=== PATIENT | female | born 1955 | race Caucasian/White ===

== ENCOUNTER 2024-03-02 12:50 | Outpatient (OUT) | payer MEDICARE, SELFPAY | END 2024-03-02 12:51 | disposition home or self-care (01) | LOC: PST 12:51 | PROVIDERS: Family Provider Family Medicine; Visit Provider Surgery | DX: Z01.818 Encounter for other preprocedural examination (principal); Z12.11 Encounter for screening for malignant neoplasm of colon ==

== ENCOUNTER 2024-03-11 06:37 | Day surgery (SDC) | payer MEDICARE, OTHER, SELFPAY ==
--- NOTE | 2024-03-11 | OP_ITS ---
OPERATION DATE: 03/11/2024 PREOPERATIVE DIAGNOSIS: Colorectal screening. POSTOPERATIVE DIAGNOSIS: Two adjacent 3 mm sessile colon polyps in the ascending colon. PROCEDURE: Colonoscopy to cecum with cold snare polypectomy x2. SURGEON: Robin Yanez M.D. ANESTHESIA: Monitored anesthesia care. ESTIMATED BLOOD LOSS: Less than 2 mL. INDICATIONS AND CONSENT: Patient is a 68-year-old female presents for colorectal screening. Indications, risks, benefits, alternatives of proceeding with colonoscopy were explained extensively to the patient, including the risks of bleeding, colon perforation or anesthetic complications. All of her questions were answered. Informed consent was obtained. PROCEDURE: Patient brought to the operating room, placed in the left lateral decubitus position. Monitored anesthesia care was provided. Rectal exam was performed which revealed no masses or blood. The scope was inserted into the anal canal. Under direct visualization was advanced. With the aid of abdominal compression, it was advanced to the cecum where cecal markings were clearly identified. There was noted to be a good prep. Upon withdrawal of the scope, mucosal surfaces were carefully examined. Within the ascending colon, there were noted to be two 3 mm sessile polyps that were adjacent to each other, erythematous. These were removed with cold snare with good hemostasis. No other mass lesions or polyps were noted. No inflammatory changes or ulcerations. No significant diverticulosis. The scope was retroflexed in the anal canal. There was no significant hemorrhoidal disease. Scope was then withdrawn. Patient tolerated procedure well, was sent to recovery room in good condition. Follow up colonoscopy should be in five years, but will depend on the pathology report. CC: Al Sandoval M.D. MARISELA
--- OUTSIDE RECORDS SUMMARY | 2024-03-11 06:44 | XMS_ITS | CCD ---
Author Organization [facility] Care Team Providers Care Supervisor Sawmill Name Role Phone Pretty Culp Primary Care Provider SOUMYA PATTNE Referring Unavailabl e SUNI, PRETTY Primary Care Unavailable PRETTY CULP Primary Care Unavailable SOUMYA PATTEN Referring Unavailabl e SUNI, PRETTY Primary Care Unavailable SOUMYA PATTEN Attending SOUMYA Burgess Referring Unavailabl e SUNI, PRETTY MONACO Referring Unavaila ble GENERIC PROVIDER, NO ASSIGNED PCP Primary Care Unavailable Robin LOPEZ Attending Unavailable PRETTY CULP Primary Care Physician Allergies Allergy Classification Reported Allergen(s) Allergy Type Date of Onset Reaction(s) Facility (1 source) ALLERGIES NOT ON FILE; Translations: [ALLERGIES NOT ON FILE] Propensity to adverse reactions (disorder) [facility] Repository (1 source) No Known Medication Allergies; Translations: [No Known Medication Allergies] Propensity to adverse reactions (disorder) [facility] Repository Medications Current Medications Medication Drug Class(es) Dates Sig (Normalized) Sig (Original) calcium citrate 1500 mg / cholecalciferol 250 unt oral tablet (1 source) Vitamin D take 1 tablet by mouth twice daily at mealtime calcium citrate-vitamin D (CITRICAL + D) 315-250 MG-UNIT TABS per tablet Take 1 tablet by mouth 2 times daily (with meals) 0 Active 24 hr dilTIAZem hydrochloride 120 mg extended release oral capsule (6 sources) Calcium Channel Ismael Start: 10-04-2023 End: 10-04-2023 take 120 mg by mouth once daily Diltiazem Hcl Active 120 MG PO Daily 90 October 04, 2023 9:49am Start: 09-02-2017 take 1 tablet by ashley th once daily diltiazem (CARDIZEM) 120 MG tablet Take 120 mg by mouth daily 0 09/02/2017 Active Diltiazem Hydrochloride ER 120 mg/24 hours oral capsule, extended release (1 source) Start: 10-28-2019 take 1 capsule by mouth once daily Diltiazem Hydrochloride ER 120 mg/24 hours oral capsule, extended release 120 mg = 1 cap(s), Oral, Daily, Refills(s) 0 Start Date: 10/28/19 Status: Ordered estradiol 0.5 mg oral tablet (10 sources) Estrogen Start: 10-27-2018 take 1 tablet by mouth once daily estradiol (ESTRACE) 1 MG tablet TAKE 1 TABLET BY MOUTH EVERY DAY 90 tablet 1 10/27/2018 Active Start: 09-10-2018 take 1 tablet by ashley once daily estradiol (ESTRACE) 0.5 MG tablet Indications: Menopause Take 1 tablet by mouth daily 90 tablet 3 02/21/2021 Active Flonase 0.05 mg/inh nasal spray (1 source) Start: 10-28-2019 Flonase 0.05 mg/inh nasal spray 2 spray(s), Nasal, Daily, Refill(s) 0 Start Date: 10/28/19 Status: Ordered fluticasone propionate 0.05 mg/actuat metered dose nasal spray (4 sources) Corticosteroid fluticasone (FLONASE) 50 MCG/ACT nasal spray 1 spray by Nasal route as needed. 0 Active Fluticasone Prp-Sod.Chl,Bicarb (1 source) Start: 10-04-2023 Fluticasone Prp-Sod.Chl,Bicar b Active 2 EACH INTRANASAL daily October 04, 2023 12:00am Multiple Vitamins-Minerals (MULTIVITAL PO) (3 sources) Multiple Vitamins-Minerals (MULTIVITAL PO) Take by mouth 0 Active Multivitamin, Therapeutic w/ Minerals (1 source) Start: 10-29-2019 take 1 tablet by mouth once daily Multivitamin, Therapeutic w/ Minerals 1 tab(s), Oral, Daily, Refill(s) 0 Start Date: 10/29/19 Status: Ordered pravastatin sodium 40 mg oral tablet (6 sources) HMG-CoA Reductase Inhibitor Start: 10-28-2019 take 40 mg by mouth once daily Pravastatin Active 40 MG PO Daily October 04, 2023 12:00am Probiotic Product (PROBIOTIC DAILY PO) (4 sources) take 1 tablet by mouth once daily Probiotic Product (PROBIOTIC DAILY PO) Take 1 tablet by mouth daily 0 Active Problems Active Problems Problem Classification Problem Date Documented Date Episodic/Chronic Administrative/soci al admission (2 sources) Other specified counseling; Translations: [Other specified counseling] Onset: 3 Episodic Cardiac dysrhythmias (1 source) Supraventricular tachycardia 01-17-2024 Chronic Chronic kidney disease (2 sources) Chronic kidney disease; Translations: [Chronic kidney disease, unspecified] Onset: 3 11-08-2023 Chronic Disorders of lipid metabolism (7 sources) Mixed hypercholesterolemia and hypertriglyceridemia; Translations: [Mixed hyperlipidemia] Onset: 7 09-04-2017 Chronic Essential hypertension (1 source) Benign essential hypertension 10-28-2019 Chronic Nutritional deficiencies (2 sources) Vitamin D deficiency; Translations: [Vitamin D deficiency, unspecified] 11-08-2023 Chronic Other nutritional; endocrine; and metabolic disorders (1 source) Overweight 01-17-2024 Episodic Other nutritional; endocrine; and metabolic disorders (1 source) Overweight in adulthood with body mass index of 25 or more but less than 30 01-28-2024 Episodic Other screening for suspected conditions (not mental disorders or infectious disease) (9 sources) Patient encounter status; Translations: [Encounter for screening mammogram for malignant neoplasm of breast] Onset: 2 Resolved: 8 Episodic Other skin disorders (1 source) Epidermoid cyst of skin 10-29-2019 Episodic Other upper respiratory disease (4 sources) Allergic rhinitis due to pollen; Translations: [Allergic rhinitis due to pollen] Onset: 8 09-04-2017 Chronic Other upper respiratory disease (1 source) Seasonal allergic rhinitis 10-28-2019 Chronic Residual codes; unclassified (1 source) Asymptomatic menopausal state; Translations: [Asymptomatic menopausal state] Onset: 3 Episodic Unclassified (5 sources) Patient encounter status; Translations: [Visit for screening mammogram] Onset: 2 Resolved: 8 02-17-2018 Past or Other Problems Problem Classification Problem Date Documented Date Episodic/Chronic Heart valve disorders (5 sources) Heart murmur; Translations: [Cardiac murmur, unspecified] Onset: 04-17-2017 09-04-2017 Episodic Residual codes; unclassified (4 sources) Postmenopausal state; Translations: [Asymptomatic menopausal state] Onset: 04-17-2017 09-04-2017 Episodic Results Test Name Value Interpretation Reference Range Facility Ambulatory Visit Summaryon 1 Ambulatory Visit Summary Ambulatory Visit Summary NNAMDI SEPULVEDA :1955 Visit Date:01/28/2024 Ambulatory Visit Instructions Your Diagnosis Screening for malignant neoplasm of colon Your Care Team Attending Physician - JOHN TAPIA, Robin Sal Primary Care Physician - SUNI TAPIA, PRETTY This Is Your Medications List Contact prescribing physician if questions or concerns diltiazem (Diltiazem Hydrochloride ER 120 mg/24 hours oral capsule, extended release) fluticasone nasal (Flonase 0.05 mg/inh nasal spray) multivitamin with minerals (Multivitamin, Therapeutic w/ Minerals) pravastatin (pravastatin 40 mg Tab) Procedures Performed Colonoscopy (04/03/2012), NEETA BSO - Total abdominal hysterectomy and bilateral salpingo-oophorectomy (08/20/1993), Removal of pilonidal cyst. Discharge Vitals Heart Rate (Peripheral) 72 Respiratory Rate 16 Blood Pressure 138/72 Height 163.8 cm Height 64 in Weight 69.6 kg Weight 153.12 lb BMI 25.94 Medications What How Much When Instructions Unchanged diltiazem (Diltiazem Hydrochloride ER 120 mg/ 24 hours oral capsule, extended release) 1 Capsules By Mouth Every day Contact prescribing physician if questions or concerns Unchanged fluticasone nasal (Flonase 0.05 mg/ inh nasal spray) 2 Sprays Nasal Inhalation Every day Contact prescribing physician if questions or concerns Unchanged multivitamin with minerals (Multivitamin, Therapeutic w/ Minerals) 1 Tablets By Mouth Every day Contact prescribing physician if questions or concerns Unchanged pravastatin (pravastatin 40 mg Tab) 1 Tablets By Mouth Every day Contact prescribing physician if questions or concerns Allergies No Known Allergies No Known Medication Allergies Problems Ongoing - Any problem that you are currently receiving treatment for. Benign essential hypertension BMI 25.0-25.9,adult Chronic kidney disease stage 2 Chronic seasonal allergic rhinitis Dyslipidemia Epidermal cyst Heart murmur Mixed hypercholesterolemia and hypertriglyceridemia Overweight Screening for malignant neoplasm of colon SVT (supraventricular tachycardia) Vitamin D deficiency Patient Survey You may receive a survey via text or e-mail asking about your office visit. Please share your experience with us by completing your survey. We appreciate your feedback and thank you for choosing us for your care. Normal [facility] CT CARDIAC SCORING WO IV CON TRASTon 04-16-2023 CT CARDIAC SCORING WO IV CONTRAST Interpreted By: Jairo Rosario, ADDENDUM: NON-CARDIOVASCULAR FINDINGS INCLUDED LUNGS, AIRWAYS AND PLEURA Endotracheal / endobronchial lesion: Negative Nodule: Negative Airspace disease: Negative Pleural effusion: Negative Pneumothorax: Negative Other: No acute or contributory unanticipated findings INCLUDED NON-CARDIOVASCULAR JIM AND MEDIASTINUM Adenopathy: Negative Included esophagus: Unremarkable Other: No acute or contributory unanticipated findings INCLUDED BONES: No acute skeletal findings, noting less sensitivity and specificity without dedicated sagittal and coronal reformatted series. INCLUDED CHEST WALL No acute or contributory unanticipated findings INCLUDED UPPER ABDOMEN Two small simple hepatic cysts of doubtful clinical consequence ------- NON-CARDIOVASCULAR IMPRESSION NO ACUTE OR CONTRIBUTORY UNEXPECTED FINDINGS OF THE INCLUDED NON-CARDIOVASCULAR STRUCTURES NOTE THIS ADDENDUM IS SOLELY FOR INTERPRETATION OF ANATOMY OUTSIDE THE CARDIOVASCULAR SYSTEM. INTERPRETATION OF AND REPORTING OF THE CARDIOVASCULAR STRUCTURES ARE THE SOLE RESPONSIBILITY OF THE BACKWINDER SUBMITTING THE ORIGINAL REPORT (NOT THIS ADDENDUM) Signed by: Jairo Rosario 04/16/2023 3:00 PM -------- ORIGINAL REPORT -------- Dictation workstation: [id number] Interpreted By: Robin Connolly, STUDY: CT CARDIAC SCORING WO IV CONTRAST; 04/16/2023 12:45 pm INDICATION: Signs/Symptoms:.. COMPARISON: None. ACCESSION NUMBER(S): [id number] ORDERING CLINICIAN: PRETTY CULP TECHNIQUE: Using prospective ECG gating, CT scan of the coronary arteries was performed without intravenous contrast. Coronary calcium scoring was performed according to the method of Agatston. CT Dose-Length Product (DLP): 70 mGy*cm CT Dose Reduction Employed: Yes, prospective gating, iterative reconstruction. FINDINGS: The score and distribution of calcium in the coronary arteries is as follows: LM 0 LAD 0 LCx 0 RCA 0 Total 0 The visualized mid/lower ascending thoracic aorta measures 3.0 cm in diameter. The heart is normal in size. No pericardial effusion is present. IMPRESSION: 1. Coronary artery calcium score of 0*. *Coronary artery calcium scoring may be helpful in predicting the risk for future coronary heart disease events. According to the [employer] Clinical Expert Consensus Task Force, such testing provides important prognostic information in patients with more than one coronary heart disease risk factor. The coronary artery calcium score correlates with the annual risk of a non-fatal myocardial infarction or coronary heart disease . Coronary artery score Annual Risk 0-99 0.4% 100-399 1.3% >400 2.4% These three breakpoints correspond to lower, intermediate and high risk states for future coronary events. Such information should be used, along with appropriate clinical judgment, to make decisions regarding the intensity of risk factor management strategies to treat blood lipids and to modify other non-lipid coronary risk factors. Reference: Nick P et al. Circulation. 2007; 115:402-426 Reading Building Certifier: Dr. Robin Connolly, Date: 04/16/2023 1:51 pm Signed by: Robin Connolly 04/16/2023 1:51 PM Dictation workstation: [id number] [facility] DEXA BONE DENSITY AXIAL SKEL ETONon 03-29-2023 DEXA BONE DENSITY AXIAL SKELETON EXAMINATION: BONE DENSITOMETRY 03/27/2023 1:38 pm TECHNIQUE: A bone density dual x-ray absorptiometry (DXA) scan was performed of the lumbar spine and left hip on a Eyenalyze system. COMPARISON: 08/27/2016 HISTORY: ORDERING SYSTEM PROVIDED HISTORY: Menopause TECHNOLOGIST PROVIDED HISTORY: Gender: F Age: 67 y/o FINDINGS: LUMBAR SPINE: L1-L4 BMD: 1.184 g/cm2 T-score: 0.0 Z-score: 1.6 There has been no statistically significant change in the bone mineral density of the lumbar spine since the prior exam date listed above. LEFT TOTAL HIP: BMD: 0.975 g/cm2 T-score: -0.3 Z-score: 1.0 LEFT FEMORAL NECK: BMD: 0.928 g/cm2 T-score: -0.8 Z-score: 0.7 There has been no statistically significant change in the bone mineral density of the total hip since the prior exam date listed above. FRAX: Not Indicated. IMPRESSION: Normal bone mineral density by WHO criteria. RECOMMENDATIONS: 1. All patients should optimize their calcium and vitamin D intake. 2. Consider FDA-approved medical therapies in postmenopausal women and men aged 50 years and older, based on the following: - A hip or vertebral (clinical or morphometric) fracture - T-score less than or equal to -2.5 at the femoral neck or spine after appropriate evaluation to exclude secondary causes - Low bone density (T-score between -1.0 and -2.5 at the femoral neck or spine) and a 10-year probability of a hip fracture greater than or equal to 3% or a 10-year probability of a major osteoporosis-related fracture greater than or equal to 20% based on FRAX calculation. - Clinician judgment and/or patient preferences may indicate treatment for people with 10-year fracture probabilities above or below these levels - Further guidance on treatment can be found at the National Osteoporosis Foundation's website bonesource.org. 3. Patients with diagnosis of osteoporosis or at high risk for fracture should have regular bone mineral density tests. For patients eligible for Medicare, routine testing is allowed once every 2 years. The testing frequency can be increased to one year for patients who have rapidly progressing disease, those who are receiving or discontinuing medical therapy to restore bone mass or have additional risk factors. Template code: [id number] Interpreted by: Paola Saenz MD Signed by: Paola Saenz MD 03/29/23 Final result Normal [facility] JEREMIAH DIGITAL SCREEN TONI Pang 03-26-2023 [facility] JEREMIAH DIGITAL SCREEN BILATERAL EXAMINATION: SCREENING DIGITAL BILATERAL MAMMOGRAM WITH TOMOSYNTHESIS, 03/26/2023 TECHNIQUE: Screening mammography was performed with tomosynthesis including MLO and CC views of the bilateral breasts. Computer aided detection was used for the interpretation of this exam. COMPARISON: 08 December 2021; 08 December 2020; 08 December 2019 HISTORY: Screening. Negative family history of breast cancer. Positive history of hormonal replacement therapy. No prior breast interventions. FINDINGS: Breasts are composed of heterogeneously dense parenchyma. No skin thickening, nipple contour changes, suspicious calcifications, suspicious masses, areas of architectural distortion or significant interval changes are noted. IMPRESSION: No evidence of malignancy. Advise annual screening mammography. BREAST DENSITY SUMMARY C: The breasts are heterogeneously dense which may obscure small masses. BI-RADS 1 BIRADS: BIRADS - CATEGORY 1 Negative, no evidence of malignancy. Normal interval follow-up is recommended in 12 months. OVERALL ASSESSMENT - NEGATIVE A letter of notification will be sent to the patient regarding the results. The [employer] recommends annual mammograms for women 40 years and older. Interpreted by: Kelly Tapia MD Signed by: Kelly Tapia MD 03/26/23 CC Recipients: Pretty Culp MD - Fax Final result Normal [facility] Cytology Reporton 03-21-2023 Cytology report Cyto stain.thin prep Doc (Cvx/Vag) (NOTE) Path Number: [id number] DIAGNOSIS Imaged ThinPrep Pap - Vaginal (1 monolayer slide): Specimen Adequacy: Satisfactory for evaluation. Descriptive Diagnosis: Negative for intraepithelial lesion or malignancy. Cytotech Screener: EY Electronically Signed Out Haile Burgos CT(ASCP) ey/03/27/2023 Source of Specimen: A: Imaged ThinPrep Pap - Vaginal (1 monolayer slide) Clinical History Estrogen Hysterectomy Z12.72 Vaginal pap post hysterectomy, non malignant condition Processing Lab: [address] [id number] Interpretation performed at [address] [id number] This Pap Test has been evaluated with the assistance of the [employer] Pap Test Imaging System. The Pap smear is a screening test primarily for squamous epithelial lesions, which is subject to both false negative and false positive results. Your patient should be reminded to consult you immediately if she experiences any suspicious signs or symptoms, regardless of her Pap smear result. GYNECOLOGIC CYTOLOGY REPORT Patient Name: NNAMDI SEPULVEDA [facility] Rec: [id number] [facility] ANATOMIC PATHOLOGY [address] [place] [address]. [place] [id number] Normal [facility] GARETH JEREMIAH DIGITAL SCREEN SELF REFERRAL W OR WO CAD BILATERALon 12-09-2021 No evidence of malignancy. Advise annual screening mammography. BREAST DENSITY SUMMARY C: The breasts are heterogeneously dense which may obscure small masses. BI-RADS 1 BIRADS: BIRADS - CATEGORY 1 Negative, no evidence of malignancy. Normal interval follow-up is recommended in 12 months. OVERALL ASSESSMENT - NEGATIVE A letter of notification will be sent to the patient regarding the results. The [employer] recommends annual mammograms for women 40 years and older. [facility]: SCREENING DIGITAL BILATERAL MAMMOGRAM WITH TOMOSYNTHESIS, 12/08/2021 TECHNIQUE: Screening mammography of the bilateral breasts was performed with tomosynthesis. 2D standard and 3D tomosynthesis combination imaging performed through both breasts in the MLO and CC projection. Computer aided detection was utilized in the interpretation of this exam. COMPARISON: 08 December 2020; 08 December 2019 HISTORY: Screening. Negative family history of breast cancer. Negative history of hormonal replacement therapy. No prior breast interventions. FINDINGS: Breast parenchyma is heterogeneously dense which can obscure small masses. No skin thickening, nipple contour changes, malignant type microcalcifications, areas of architectural distortion, or significant interval changes are noted. Kelly Fallon MD - 12/09/2021 EXAMINATION: SCREENING DIGITAL BILATERAL MAMMOGRAM WITH TOMOSYNTHESIS, 12/08/2021 TECHNIQUE: Screening mammography of the bilateral breasts was performed with tomosynthesis. 2D standard and 3D tomosynthesis combination imaging performed through both breasts in the MLO and CC projection. Computer aided detection was utilized in the interpretation of this exam. COMPARISON: 08 December 2020; 08 December 2019 HISTORY: Screening. Negative family history of breast cancer. Negative history of hormonal replacement therapy. No prior breast interventions. FINDINGS: Breast parenchyma is heterogeneously dense which can obscure small masses. No skin thickening, nipple contour changes, malignant type microcalcifications, areas of architectural distortion, or significant interval changes are noted. IMPRESSION: No evidence of malignancy. Advise annual screening mammography. BREAST DENSITY SUMMARY C: The breasts are heterogeneously dense which may obscure small masses. BI-RADS 1 BIRADS: BIRADS - CATEGORY 1 Negative, no evidence of malignancy. Normal interval follow-up is recommended in 12 months. OVERALL ASSESSMENT - NEGATIVE A letter of notification will be sent to the patient regarding the results. The [employer] recommends annual mammograms for women 40 years and older. [employer] Phone: [employer] JEREMIAH DIGITAL SCREEN SELF REFERRAL W OR WO CAD BILATERALOrdered By: Kelly Tapia on 12-09-2021 [employer] Phone: [employer] other [employer] bake JEREMIAH DIGITAL SCREEN SELF REFERRAL W OR WO CAD BILATERALon 12-08-2021 Radiology Study observation (narrative) [employer] Phone: [employer] other things you bake JEREMIAH DIGITAL SCREEN SELF REFERRAL W OR WO CAD BILATERALOrdered By: Pretty Culp on 12-08-2020 No mammographic evidence of malignancy. BI-RADS 1 BIRADS: BIRADS - CATEGORY 1 Negative, no evidence of malignancy. Normal interval follow-up is recommended in 12 months. OVERALL ASSESSMENT - NEGATIVE A letter of notification will be sent to the patient regarding the results. The [employer] recommends annual mammograms for women 40 years and older. [employer] Phone: EXAMINATION: SCREENI NG DIGITAL BILATERAL MAMMOGRAM WITH TOMOSYNTHESIS, 12/08/2020 TECHNIQUE: Screening mammography of the bilateral breasts was performed with tomosynthesis. 2D standard and 3D tomosynthesis combination imaging performed through both breasts in the MLO and CC projection. Computer aided detection was utilized in the interpretation of this exam. COMPARISON: 12/08/2019, 09/23/2018 HISTORY: Screening. FINDINGS: The breast tissue is heterogeneously dense. There is no suspicious mass, suspicious microcalcification, or area of architectural distortion. [employer] Phone: [employer] Phone: [employer] DIGITAL SCREEN BILGil TERALon 12-09-2019 No evidence of malignancy. Advise annual screening mammography. BREAST DENSITY SUMMARY C: The breasts are heterogeneously dense which may obscure small masses. BI-RADS 1 BIRADS: BIRADS - CATEGORY 1 Negative, no evidence of malignancy in either breast. OVERALL ASSESSMENT - NEGATIVE A letter of notification will be sent to the patient regarding the results. RECOMMENDATION: Routine bilateral annual screening mammography is recommended. Follow-up screening mammogram in 1 year is advised. [employer] [place], [place] EXAMINATION: SCREENI NG DIGITAL BILATERAL MAMMOGRAM WITH TOMOSYNTHESIS, 12/08/2019 TECHNIQUE: Screening mammography was performed with tomosynthesis including MLO and CC views of the bilateral breasts. Computer aided detection was used for the interpretation of this exam. COMPARISON: 23 September 2018; 27 Aug 2016 HISTORY: Screening. Negative family history of breast cancer. Negative history of hormonal replacement therapy. No prior breast interventions. FINDINGS: The breasts are heterogeneously dense which can obscure small masses. No skin thickening, nipple contour changes, malignant type microcalcifications, or areas of architectural distortion are noted. There is little change from prior exam. [facility] [place], [facility] Incoming Radiant Results From [email or web address] - 12/09/2019 10:08 AM EDT EXAMINATION: SCREENING DIGITAL BILATERAL MAMMOGRAM WITH TOMOSYNTHESIS, 12/08/2019 TECHNIQUE: Screening mammography was performed with tomosynthesis including MLO and CC views of the bilateral breasts. Computer aided detection was used for the interpretation of this exam. COMPARISON: 23 September 2018; 27 Aug 2016 HISTORY: Screening. Negative family history of breast cancer. Negative history of hormonal replacement therapy. No prior breast interventions. FINDINGS: The breasts are heterogeneously dense which can obscure small masses. No skin thickening, nipple contour changes, malignant type microcalcifications, or areas of architectural distortion are noted. There is little change from prior exam. IMPRESSION: No evidence of malignancy. Advise annual screening mammography. BREAST DENSITY SUMMARY C: The breasts are heterogeneously dense which may obscure small masses. BI-RADS 1 BIRADS: BIRADS - CATEGORY 1 Negative, no evidence of malignancy in either breast. OVERALL ASSESSMENT - NEGATIVE A letter of notification will be sent to the patient regarding the results. RECOMMENDATION: Routine bilateral annual screening mammography is recommended. Follow-up screening mammogram in 1 year is advised. [facility] [place] Vital Signs Date Time Vital Sign Value Performing Clinician Dedrick pardo 01-28-2024 13:18-0400 Blood Pressure Location [employer] [facility] 01-28-2024 13:18-0400 Diastolic blood pressure 72 mm[Hg] Robin LikeabilityL [facility] 01-28-2024 13:18-0400 Heart rate 72 /min [email or web address] [facility] [facility] 01-28-2024 13:18-0400 Respiratory rate 16 /min Robin LikeabilityL [facility] 01-28-2024 13:18-0400 Systolic blood pressure 138 mm[Hg] [email or web address] [facility] 11-18-2023 10:04-0400 Body height 163.83 cm [facility] 11-18-2023 10:04-0400 Body mass index (BMI) [Ratio] 25.2 kg/m2 [facility] 11-18-2023 10:04-0400 Body weight 67.58 kg [facility] 11-18-2023 10:04-0400 Diastolic blood pressure 66 mm[Hg] [facility] 11-18-2023 10:04-0400 Heart rate 75 /min [facility] 11-18-2023 10:04-0400 Systolic blood pressure 122 mm[Hg] [facility] Encounters Encounter Date Encounter Type Care Provider Facility Start: 01-28-2024 End: 01-28-2024 ambulatory Robin LOPEZ Facility:[facility] Start: 01-28-2024 End: 01-28-2024 Patient encounter procedure Robin LOPEZ [facility] Start: 11-18-2023 End: 11-18-2023 ambulatory [facility] Work Phone: Start: 11-18-2023 End: 11-18-2023 Patient encounter procedure [facility] Physician [facility] Work Phone: Start: 11-08-2023 Patient encounter status [facility] Start: 04-16-2023 End: 04-17-2023 ambulatory PRETTY MONACO [facility] Start: 03-27-2023 End: 03-30-2023 ambulatory PRETTY CULP [facility] Start: 03-26-2023 End: 03-29-2023 [facility] Start: 03-21-2023 End: 03-22-2023 ambulatory SOUMYA PATTEN [facility] Start: 12-08-2021 End: 12-10-2021 Subsequent hospital visit by physician [facility] Mammography Room At [facility] Mammography Comment on above: Breast cancer screen ing by mammogram Start: 12-08-2020 End: 12-10-2020 Subsequent hospital visit by physician [facility] Mammography Room At [facility] Mammography Comment on above: Breast cancer screen ing by mammogram Start: 01-20-2020 End: 01-20-2020 Subsequent hospital visit by physician Pretty Culp [facility] Comment on above: Screening for vagina l cancer Start: 12-08-2019 End: 12-10-2019 Subsequent hospital visit by physician [facility] Mammography Room At [facility] Mammography Comment on above: Visit for screening mammogram Procedures Date Procedure Procedure Detail Performing Clinician Start: 04-16-2023 CT CARDIAC SCORING W O IV CONTRAST PRETTY CULP Start: 12-08-2021 Screening mammograph y bi 2-view breast inc cad Pretty Culp MD Work Phone: Start: 12-08-2020 Screening mammograph y bi 2-view breast inc cad Pretty Culp MD Work Phone: Start: 12-08-2019 Screening mammograph y bi 2-view breast inc cad Soumya Patten Work Phone: Start: 04-03-2012 Colonoscopy Robin CANCINO Comment on above: normal Start: 08-20-1993 Total abdominal hysterectomy with bilateral salpingo-oophorectomy Robin LOPEZ Removal of pilonidal cyst Maria Victoria td LOPEZ Comment on above: 1984 Plan of Treatment Date Care Activity Detail Author Start: 12-09-2023 Screening for malign ant neoplasm of breast Breast cancer screen [facility] [employer] Start: 11-18-2023 Patient referral [facility] Work Phone: Start: 01-19-2023 Screening for malign ant neoplasm of cervix Cervical cancer screen [employer] Work Phone: Start: 12-08-2022 Screening for malign ant neoplasm of breast Breast cancer screen [employer] Work Phone: Start: 02-21-2022 End: 02-21-2022 Patient encounter procedure 02/21/2022 Office Visit Obstetrics and Gynecology Soumya Patten, SYSTEMS SECURITY ANALYST - CNRas [address] [place] [address] [facility] Start: 02-17-2022 Depression Screen Depression Screen [facility] Start: 12-21-2021 Influenza vaccination Flu vaccine (# 1) [facility] Start: 12-07-2021 Screening for malign ant neoplasm of breast Breast cancer screen [place], [place] Start: 09-10-2021 Screening for malign ant neoplasm of cervix Cervical cancer screen [place], [place] Start: 02-09-2021 End: 02-09-2021 Patient encounter procedure 02/09/2021 Office Visit Obstetrics and Gynecology Soumya Patten, SYSTEMS SECURITY ANALYST - CNM [address] [place], [place] [id number] [facility] Start: 12-21-2020 Influenza vaccination Flu vaccine (# 1) [facility] Work Phone: Start: 09-28-2020 Lipid panel [facility] Start: 02-26-2020 Shingles Vaccine (2 of 2) Shingles Vaccine (2 of 2) [facility] Work Phone: Start: 01-20-2020 End: 01-20-2020 Office Visit 01/20/2020 Office Visit Obstetrics and Gynecology Soumya Patten, SYSTEMS SECURITY ANALYST - CNM [address] [facility] [address] [place] [address] [facility]OLOG[facility] Start: 12-22-2019 Influenza vaccination Flu vaccine (# 1) [place], [place] Start: 2007 Screening for malign ant neoplasm of colon Colon cancer screen colonoscopy [place], [place] Start: 2007 Shingles Vaccine (1 of 2) Shingles Vaccine (1 of 2) [place] Start: 2002 Screening for malign ant neoplasm of colon [facility] Start: 1976 DTaP/Tdap/Td vaccine (1 - Tdap) DTaP/Tdap/Td vaccine (1 - Tdap) [facility] Start: 1975 Hepatitis C screening Hepatitis C sc reen [facility] Start: 1972 HIV screening HIV screen [facility] Start: 1969 COVID-19 Vaccine (1) COVID-19 Vaccin e (1) [facility] Work Phone: Start: 1967 Lipid panel Lipid screen [place], [place] Start: 1957 COVID-19 Vaccine (#1) COVID-19 Vacci ne (#1) [facility] Start: 1957 Hepatitis C screening Hepatitis C il rufina [place], [place] End: 01-20-2020 Cytopathology procedure, preparation of smear, genital source [facility] Routine Screening for vaginal cancer 1 Occurrences starting 01/20/2020 until 01/20/2020 [place], [place] Comment on above: 1 Occurrences starti ng 01/20/2020 until 01/20/2020 Patient referral [facility] Work Phone: Immunizations Immunization Date Immunization Notes Care Provider [facility] 04-12-2023 influenza virus vaccine, unspecified formulation Robin LOPEZ [facility] 03-09-2022 COVID-19 mRNA-1273 (Moderna) [facility] 03-09-2022 influenza virus vaccine, unspecified formulation [facility] 03-09-2022 SARS-CoV-2 (COVID-19 ) [id number] Robin LOPEZ [facility] 08-18-2021 COVID-19 mRNA-1273 (Moderna) [facility] 03-15-2021 SARS-CoV-2 (COVID-19 ) mRNA-1273 vaccine Robin LOPEZ [facility] 03-03-2021 influenza virus vaccine, unspecified formulation [facility] 08-17-2020 SARS-CoV-2 (COVID-19 ) mRNA-1273 vaccine Robin LOPEZ [facility] 07-20-2020 SARS-CoV-2 (COVID-19 ) mRNA-1273 vaccine Robin LOPEZ [facility] 03-26-2020 zoster vaccine, [facility] 01-01-2020 influenza virus vaccine, unspecified formulation [facility] 01-01-2020 zoster vaccine, [facility] Payers Date Payer Category Payer Medicare [id number] 2020 Unknown ADOLFO [facility]ON[facility] [id number] 2020-[facility] [phone] [address] [id number] 2014 Unknown [id number] 1957 Unknown [id number] 1957 Unknown [id number] 1957 Unknown [id number] 1957 Unknown [id number] 1957 Unknown [id number] Unknown O [id number] Unknown [facility] [id number] Social History Date Type Detail Facility Start: 10-07-2018 End: 01-28-2024 Tobacco [facility] status [facility] Start: 09-04-2017 End: 10-07-2018 Tobacco use and exposure [facility] Start: 10-07-2018 End: 12-08-2020 Alcohol intake Current drinker of alcohol (finding) Meron [facility] [employer] Start: 09-04-2017 Alcohol Comment rarely [place]on [place] Start: 1955 Sex Assigned At Not on file [place], [place] Exposure to SARS-CoV -2 (event) Not sure [facility] [employer] Start: 02-17-2021 Alcohol intake Ex-drinker (finding) SARTHAK MELTON [place] [employer] Work Phone: Start: 1955 Sex Assigned At Female F [facility] Tobacco smoking status Never [facility] Sex Assigned At Female [facility] Functional Status Date Assessment Result Facility 01-28-2024 Functional Status N/A [facility] Clinical Note 01-28-2024 Note Date & Type Note Facility 01-28-2024 Note [facility] Surgery Offi ce/Clinic Note Chief Complaint consultation for colonoscopy HPI Staff 68 year old female presents on consultation from Dr. Culp for screening colonoscopy. Denies abdominal or rectal pain. No rectal bleeding or change in bowel habits. Denies nausea or vomiting. No unexplained weight loss. Last colonoscopy completed 03/2012- normal. No known family history of colon cancer. History of Present Illness 68 yo female with h/o htn, hypercholesterolemia, CKD, SVT, referred for colorectal screening; denies change in bms or blood in stools; no abd complaints; last colonoscopy 2011 wnl; abd operations significant for NEETA with bso; no asa or NSAID use; no tobacco use; no fmhx of GI malignancy or IBD. Review of Systems PHQ Score Initial Depression Screen Score: 0 SCORE ROS - Provider Constitutional: no fever, no sweats, no weight loss. Eyes: no glasses, no blurred vision, no visual loss. ENMT: no dentures, no hoarseness, no swallowing difficulties, no hearing loss, no ear infection(s), no nose bleeds. Cardiovascular: normal blood pressure, no chest pain, regular heartbeat, no heart murmur. Respiratory: no shortness of breath, no cough, no asthma, no wheezing. Gastrointestinal: no nausea, no vomiting, no diarrhea, no constipation, no blood in stool, no change in bowel habits, no abdominal pain, no hepatitis. Genitourinary: no kidney stones, no urine infection, no dysuria. Musculoskeletal: no pain, no weakness. Skin: no changing moles, no rash, no skin lumps. Neurologic: no seizures, no epilepsy, no headache. Psychiatric: no emotional or psychiatric problem. Heme/Lymph: no bleeding problems, no anemia, no blood clots, no transfusions. Allergy/Immunologic: no swollen lymph nodes/glands, no IV drug abuse. Other: Additional ROS info: Except as noted in the above Review of Systems and in the History of Present Illness, all other systems have been reviewed and are negative or noncontributory. Physical Exam Vitals & Measurements HR: 72(Peripheral) RR: 16 BP: 138/72 HT: 64 in HT: 163.8 cm WT: 69.6 kg WT: 153.12 lb BMI: 25.94 HEENT: normal conjunctiva, sclera clear, no scleral icterus, EOM intact, PERRLA, oral mucosa moist without lesions. Neck: trachea midline, no mass, symmetric, no thyromegaly or nodules, no adenopathy Respiratory: lungs CTA, respirations non labored. Cardiovascular: regular rate and rhythm, no murmur, no pedal edema or varicosities. Gastrointestinal: soft, non distended, no tenderness, no masses, no palpable hernias, diastasis recti no, no hepatosplenomegaly; normal bs Lymphatic: no cervical adenopathy, no supraclavicular adenopathy normal gait, digits and nails without infection, nodes, cyanosis, clubbing. Skin: no rashes, no lesions, no ulcers, no subcutaneous nodules, induration. Psychiatric/Neuro: oriented to time, place, person, judgement normal, affect appropriate for age, insight intact, no focal deficits. Tests: labs reviewed, x-rays reviewed, review of old records completed , _ surgical options, risks, and possible complications with patient. Assessment/Plan 1. Screening for malignant neoplasm of colon (Z12.11: Encounter for screening for malignant neoplasm of colon) plan colonoscopy under anesthesia, informed consent obtained. Follow-up No qualifying data available Problem List/Past Medical History Ongoing Benign essential hypertension BMI 25.0-25.9,adult Chronic kidney disease stage 2 Chronic seasonal allergic rhinitis Dyslipidemia Epidermal cyst Heart murmur Mixed hypercholesterolemia and hypertriglyceridemia Overweight Screening for malignant neoplasm of colon SVT (supraventricular tachycardia) Vitamin D deficiency Historical No qualifying data Procedure/Surgical History Colonoscopy (04/03/2012), NEETA BSO - Total abdominal hysterectomy and bilateral salpingo-oophorectomy (08/20/1993), Removal of pilonidal cyst. Medications Diltiazem Hydrochloride ER 120 mg/24 hours oral capsule, extended release, 120 mg= 1 cap(s), Oral, Daily Flonase 0.05 mg/inh nasal spray, 2 spray(s), Nasal, Daily Multivitamin, Therapeutic w/ Minerals, 1 tab(s), Oral, Daily pravastatin 40 mg Tab, 40 mg= 1 tab(s), Oral, Daily Allergies No Known Allergies No Known Medication Allergies Social History Alcohol - Denies Alcohol Use, 10/29/2019 Substance Abuse - Denies Substance Abuse, 10/29/2019 Tobacco Never (less than 100 in lifetime) Tobacco Use:. Never Smokeless Tobacco Use:., 01/28/2024 Family History Heart failure: Mother. Hypertension: Brother. Immunizations Vaccine Date Status influenza virus vaccine, inactivated 04/12/2023 Recorded SARS-CoV-2 (COVID-19) [id number] 03/09/2022 Recorded SARS-CoV-2 (COVID-19) mRNA-1273 vaccine 08/18/2021 Recorded SARS-CoV-2 (COVID-19) mRNA-1273 vaccine 03/15/2021 Recorded SARS-CoV-2 (COVID-19) mRNA-1273 vaccine 08/17/2020 Recorded SARS-CoV-2 (COVID-19) mRNA-1273 vaccine 07/20/2020 Recorded [facility] Comment on above: Result Comment: Elec tronically Signed By: JOHN TAPIA, Robin Christian\Date and Time Signed: 01/28/24 13:40 EDT Evaluation + Plan note Note Date & Type Note Facility Evaluation + Plan note No data available for this section [facility] Evaluation note Note Date & Type Note Facility Evaluation note Diagnosis Breast cancer screening by mammogram documented in this encounter [employer] Phone: Evaluation note Note Date & Type Note Facility Evaluation note Diagnosis Breast cancer screening by mammogram documented in this encounter SARTHAK MELTON [employer] Work Phone: Evaluation note Note Date & Type Note Facility Evaluation note Diagnosis Onset Date Encounter for screening colonoscopy acute [facility] Work Phone: Hospital Discharge instructions Note Date & Type Note Facility Hospital Discharge instructions Ambulatory OrdersReferral to General Surgery Time Frame: 11/18/23, Location: None [facility] Work Phone: Hospital Discharge instructions Note Date & Type Note Facility Hospital Discharge instructions No data available for this section [facility] [employer] Progress note Note Date & Type Note Facility Progress note No data available for this section [facility] Diagnosis Visit for screening mammogram Other screening mammogram Diagnosis Screening for vaginal cancer Special screening for malignant neoplasms, vagina Advance Directives Documents on File Type Date Recorded Patient Scholarship Counselor Expl anation ACP-Advance Directive ACP-Power of Emergency Vehicle Driver Documents on File Type Date Recorded Patient Scholarship Counselor Expl anation ACP-Advance Directive ACP-Power of Emergency Vehicle Driver Advance Directive Response Recorded Date/ Time Advance Directives No November 17 9:55am Reason for Referral Status Reason Specialty Diagnoses / Procedures Referre d By Contact Referred To Contact Closed Radiology Diagnoses Breast cancer screening by mammogram Procedures GARETH JEREMIAH DIGITAL SCREEN SELF REFERRAL W OR WO CAD BILATERAL Pretty Culp MD [address] [place] [address] Specialty Diagnoses / Procedures Referred By Contac t Referred To Contact Radiology Diagnoses Breast cancer screening by mammogram Procedures GARETH JEREMIAH DIGITAL SCREEN SELF REFERRAL W OR WO CAD BILATERAL Pretty Culp MD [address] [place] [address] Referral ID Status Reason Start Date Expiration Date Visits Re quested Visits Authorized [id number] Closed 12/08/2021 12/08/2022 1 1 Summary Purpose Family History Relationship Condition Age at Onset Recorded Date/T vance brother Hypertension Unknown father History of malignant neoplasm of prostate Unknown Malignant neoplasm Unknown Unknown Heart disease Unknown family member Heart disease Unknown mother Cardiomegaly Unknown Chief Complaint and Reason for Visit Chief Complaint wellness Reason for Visit Encounter for screen ing colonoscopy Additional Source Comments Reason for Visit (unrecogniz ed section and content) Status Reason Specialty Diagnoses / Procedures Referre d By Contact Referred To Contact Closed Radiology Diagnoses Visit for screening mammogram Procedures GARETH JEREMIAH DIGITAL SCREEN BILATERAL GARETH DIGITAL SCREEN W OR WO CAD BILATERAL Soumya Patten, SYSTEMS SECURITY ANALYST - CNM [address] [facility] [address] [place] [address] [facility] [address] [place] [address] Status Reason Specialty Diagnoses / Procedures Referre d By Contact Referred To Contact Closed Radiology Diagnoses Breast cancer screening by mammogram Procedures GARETH JEREMIAH DIGITAL SCREEN SELF REFERRAL W OR WO CAD BILATERAL Pretty Cupl MD [address] [place] [phone] Specialty Diagnoses / Procedures Referred By Contac t Referred To Contact Radiology Diagnoses Breast cancer screening by mammogram Procedures GARETH JEREMIAH DIGITAL SCREEN SELF REFERRAL W OR WO CAD BILATERAL Pretty Culp MD [address] [place] [phone] Referral ID Status Reason Start Date Expiration Date Visits Re quested Visits Authorized [id number] Closed 12/08/2021 12/08/2022 1 1 Care Teams (unrecognized sec tion and content) Personnel Name: PRETTY CULP MD Address: Address: [address] [place] [address] Supervisor Sawmill Relationship Specialty Start Date End Date Pretty Culp MD PCP - General Family Medicine 08/21/18 Team Status: Active Member Role Status Dates Pretty Culp MD Primary Care Provider Active Team Status: Inactive Member Role Status Dates Pretty Culp MD Primary Care Provide r, Attending Provider Active Start: November 18, 2023 End: November 18, 2023 INFORMATION SOURCE (unrecogn ized section and content) DATE CREATED AUTHOR 03/31/2023 Meron banda DATE CREATED AUTHOR AUTHOR'S ORGANIZ ATION 04/21/2023 [facility] DATE CREATED AUTHOR AUTHOR'S ORGANIZ ATION 01/30/2024 [facility] Goals (unrecognized section and content) Goals may be documented in a n alternate section No data available for this section FOR RECORDS PERTAINING TO PATIENTS WHO ARE OR HAVE BEEN ENROLLED IN A CHEMICAL DEPENDENCY/SUBSTANCEABUSE PROGRAM, SOME INFORMATION MAY BE OMITTED. This clinical summary was aggregated from multiple sources. Caution should be exercised in using it in the provision of clinical care. This summary normalizes information from multiple sources, and as a consequence, information in this document may materially change the coding, format and clinical context of patient data. In addition, data may be omitted in some cases. CLINICAL DECISIONS SHOULD BE BASED ON THE PRIMARY CLINICAL RECORDS. [employer] provides no warranty or guarantee of the accuracy or completeness of information in this document.
[2024-03-11 06:55] VITALS: BMI 24.6
[2024-03-11 07:12] VITALS: BP 148/75; PULSE 87; TEMP 36.6; O2SAT 99
[2024-03-11] MEDS: 0.9 % SODIUM CHLORIDE 500 ML 50 ML IV (07:21)
[2024-03-11 07:52] VITALS: BP 100/57; PULSE 67; TEMP 36.4; O2SAT 95
[2024-03-11 08:07] VITALS: BP 118/69; PULSE 60; TEMP 36.3; O2SAT 96
[2024-03-11 08:22] VITALS: BP 131/79; PULSE 68; TEMP 36.2; O2SAT 100
== END 2024-03-11 08:30 | disposition home or self-care (01) ==
PROVIDERS: Family Provider Family Medicine; PCP Family Medicine; Visit Provider Surgery
PROC: (CPT 45385; principal; 2024-03-11 07:30)
DX: Z12.11 Encounter for screening for malignant neoplasm of colon (principal); K63.5 Polyp of colon
CPT/HCPCS: 45385; 88305; J2704

== ENCOUNTER 2024-11-09 09:05 | Outpatient (OUT) | payer MEDICARE, OTHER, SELFPAY ==
--- OUTSIDE RECORDS SUMMARY | 2024-11-09 09:10 | XMS_ITS | Clinical Summary ---
Author Organization [facility] Address [address] [place] [address] Phone Care Team Providers Care Switchman Supervisor Name Role Phone Generic Provider, No Assigned Pcp MD Primary Car e Provider Unavailable Social History Tobacco Use Types Packs/Day Years Used Date Smoking Tobacco: Never Assessed Comments Unknown Sex and Gender Information Value Date Recorded Sex Assigned at Not on file Legal Sex Female 10:27 AM EST Gender Identity Not on file Sexual Orientation Not on file Plan of Treatment Health Maintenance Due Date Last Done Comments CT Colonography 1955 Colonoscopy 1955 Colorectal Cancer Screening 1955 FIT-DNA (Cologuard) 1955 FIT 1955 Lipid Panel 1955 Medicare Annual Wellness Visit (AWV) 1955 Sigmoidoscopy 1955 MMR Vaccines (1 of 1 - Standard series) 1958 Hepatitis C Screening 1975 DTaP/Tdap/Td Vaccines (1 - Tdap) 1979 Pneumococcal Vaccine (1 of 1 - PCV) 2007 COVID-19 Vaccine ( - season) 2023 03/09/2022, 08/18/2021, 03/15/2021, Additional history exists Mammogram 03/26/2024 03/26/2023, 08/2022, 12/08/2021, Additional history exists Influenza Vaccine (#1) 2024 , 03/09/2022, 03/03/2021, Additional history exists RSV High Risk: (Elderly (60+) or Population) (1 - 1-dose 75+ series) 2032 Zoster Vaccines Completed 03/26/2020, 01/01/2020 Bone Density Scan Completed 03/27/2023, 03/27/2023 HIB Vaccines Aged Out No longer eligi ble based on patient's age to complete this topic HPV Vaccines Aged Out No longer eligi ble based on patient's age to complete this topic Hepatitis A Vaccines Aged Out No long er eligible based on patient's age to complete this topic Hepatitis B Vaccines Aged Out No long er eligible based on patient's age to complete this topic IPV Vaccines Aged Out No longer eligi ble based on patient's age to complete this topic Meningococcal Vaccine Aged Out No dayana samara eligible based on patient's age to complete this topic Rotavirus Vaccines Aged Out No longer eligible based on patient's age to complete this topic Insurance [facility] MEDICARE SUPPLEMENT MEDICARE PART A AND B [facility] MEDICARE SUPPLEMENT MEDICARE PART A AND B Care Teams Switchman Supervisor Relationship Specialty Start Date End Date Generic Provider, No Assigned PcpMD PCP - General Family Medicine 04/11/23
--- OUTSIDE RECORDS SUMMARY | 2024-11-09 09:10 | XMS_ITS | Encounter Summary ---
Author Organization [employer] Address [id number] [place] [address] Care Team Providers Care Refrigerating Engineer Name Role Phone Pretty Ornelas MD Primary Care Provider [phone] Reason for Visit * Reason Onset Date Comments Med Refill 03/25/2017 Encounter Details Date Type Department Care Team (Late st Contact Info) Description 03/25/2017 Refill [facility] [address] [place] [address] Gina Levi, AUTO APPRAISER-MEAT HANGER [address] [place] [address] Social History Tobacco Use Types Packs/Day Years Used Date Smoking Tobacco: Never Assessed Comments Unknown Sex and Gender Information Value Date Recorded Sex Assigned at Not on file Legal Sex Female 4:02 PM EST Gender Identity Not on file Sexual Orientation Not on file documented as of this encounter Plan of Treatment Not on file documented as of this encounter Visit Diagnoses Not on filedocumented in this encounter Care Teams Refrigerating Engineer Relationship Specialty Start Date End Date Pretty Ornelas MD [address] [place] [address] PCP - General Family Medicine 04/27/21 documented as of this encounter
--- OUTSIDE RECORDS SUMMARY | 2024-11-09 09:10 | XMS_ITS | Encounter Summary ---
Author Organization [facility] tem Address [id number] [address] [place] [address] Care Team Providers Care Photovoltaic Testing Technician Name Role Phone Pretty Ornelas MD Primary Care Provider [phone] Encounter Details Date Type Department Care Team (Late st Contact Info) Description 08/31/2022 Telephone PHN [facility] [address] [facility] [address] [place] [id number] Christiana Carballo CMA Social History Tobacco Use Types Packs/Day Years Used Date Smoking Tobacco: Never Cigarettes Smokeless Tobacco: Never Alcohol Use Standard Drinks/Week Comments Yes 1 (1 standard drink = 0.6 oz pur e alcohol) socially PHQ-2 Answer Date Recorded Total Score 0 09/02/2017 Childcare Answer Date Recorded Childcare Unknown 10/01/2018 Employment Answer Date Recorded Employment Unknown 10/01/2018 Purpose - Life Answer Date Recorded Purpose and direction in life Unknown Comments No Sex and Gender Information Value Date Recorded Sex Assigned at Not on file Legal Sex Female 4:02 PM EST Gender Identity Not on file Sexual Orientation Not on file documented as of this encounter Miscellaneous Notes * Telephone Encounter - Christiana Carballo CMA - 08/31/2022 11:12 AM EDT [place] to confirm appt on 09/05 in [place] documented in this encounter Plan of Treatment Not on file documented as of this encounter Visit Diagnoses Not on filedocumented in this encounter Additional Health Concerns Assessment Noted Time PHQ-9 Depression Total Score: 0 09/03/19 18 9:00 AM EDT documented as of this encounter Care Teams Photovoltaic Testing Technician Relationship Specialty Start Date End Date Pretty Ornelas MD [address] [place] [phone] PCP - General Family Medicine 04/27/21 documented as of this encounter
--- OUTSIDE RECORDS SUMMARY | 2024-11-09 09:10 | XMS_ITS | Clinical Summary ---
Author Organization [facility] Address [address] [facility], [address] [place] [address] Care Team Providers Care Diesel Engine Engineer Name Role Phone Pretty Ornelas MD Primary Care Provider [phone] Allergies No known active allergies Medications fluticasone (FLONASE) 50 MCG/ACT nasal spray 1 spray by Nasal route as needed Active pravastatin (PRAVACHOL) 40 MG tablet Take 1 tablet by mouth daily Active dilTIAZem (CARDIZEM) 120 MG tablet Take 1 tablet by mouth daily 09/02/2017 Active Multiple Vitamins-Mineral s (MULTIVITAL PO) Take by mouth Active calcium citrate-vitamin D (CITRICAL + D) 315-250 MG-UNIT TABS per tablet Take 1 tablet by mouth 2 times daily (with meals) Active Glucosamine-Aamir droit-Vit C-Mn (GLUCOSAMINE 1500 COMPLEX PO) Take by mouth Active Active Problems Problem Noted Date Diagnosed Date Acute seasonal allergic rhinitis due to pollen 0 09/02/2017 Elevated triglycerides with high cholesterol Heart murmur 04/17/2017 Post-menopausal 04/17/2017 Resolved Problems Problem Noted Date Diagnosed Date Resolved Date Screening for colon cancer 04/03/2012 1 Family History Medical History Relation Name Comments High Cholesterol Brother Heart Failure Mother Other Other No family h/o o varian or breast cancer, no family h/o DVT. Relation Name Status Comments Brother Alive Father Maternal Grandfather Maternal Grandmother Mother Other Other Paternal Grandfather Paternal Grandmother Social History Tobacco Use Types Packs/Day Years Used Date Smoking Tobacco: Never Smokeless Tobacco: Never Tobacco Cessation:Counseling Given: Not Answered Alcohol Use Standard Drinks/Week Comments Not Currently 0 (1 standard drink = 0.6 oz pur e alcohol) rarely Overall Financial Resource Strain (CARDIA) Answe r Date Recorded How hard is it for you to pa y for the very basics like food, housing, medical care, and heating? Not hard at all 03/26/2024 PHQ-2 Answer Date Recorded PHQ-9 Total Score 0 03/26/2024 Hunger Vital Sign Answer Date Recorded Within the past 12 months, y ou worried that your food would run out before you got the money to buy more. Never true 03/26/20 24 Within the past 12 months, t he food you bought just didn't last and you didn't have money to get more. Never true 03/26/2024 PRAPARE - Transportation Answer Date Re corded Lack of Transportation (Medical) Not on file 03/26/2024 In the past 12 months, has l ack of transportation kept you from meetings, work, or from getting things needed for daily living? No 03/26/2024 Housing Stability Vital Sign Answer Sourav e Recorded Unable to Pay for Housing in the Last Year Not o n file 03/26/2024 Number of Times Moved in the Last Year Not on fi le 03/26/2024 At any time in the past 12 m [facility], were you homeless or living in a alf (including now)? No 03/26/2024 Food Insecurity Answer Date Recorded Within the past 12 months, y ou worried that your food would run out before you got the money to buy more. 1 03/26/2024 Within the past 12 months, t he food you bought just didn't last and you didn't have money to get more. 1 03/26/2024 Comments No Sex and Gender Information Value Date Recorded Sex Assigned at Not on file Legal Sex Female 6:43 PM EST Gender Identity Not on file Sexual Orientation Not on file Last Filed Vital Signs Vital Sign Reading Time Taken Comments Blood Pressure 122/76 03/26/2024 1:04 PM EST Pulse 63 04/03/2012 9:37 AM EST Temperature 36.1 C (97 F) 04/03/2012 9:10 AM EST Respiratory Rate 16 04/03/2012 9:37 AM EST Oxygen Saturation 99% 04/03/2012 9:37 AM EST Inhaled Oxygen Concentration - - Weight 68 kg (150 lb) 04/21/2024 2:29 PM EST Height 165.1 cm (5' 5 ) 04/21/2024 2:29 PM EST Body Mass Index 24.96 04/21/2024 2:29 PM EST Plan of Treatment Upcoming Encounters Date Type Department Care Team (Late st Contact Info) Description 03/30/2025 2:45 PM EST Office Visit [facility] & GYNECOLOGY Part of [address] [place] [id number] Soumya Patten, GEAR REPAIRER - CNM [address] [place] [address] yearly Health Maintenance Due Date Last Done Comments Hepatitis C screen 1975 DTaP/Tdap/Td vaccine (1 - Tdap) 1976 Colonoscopy 2002 Colorectal Cancer Screen 2002 FIT/FOBT: Average risk 2002 Fecal-DNA (Cologuard): Average risk 2002 Sigmoidoscopy/CT colonography 2002 Pneumococcal 50+ years Vaccine (1 of 1 - PCV) 2007 Lipids 09/28/2020 09/29/2019 Annual Wellness Visit (Medicare) 03/21/2023 COVID-19 Vaccine ( - season) 2023 03/09/2022, 08/18/2021, 03/15/2021, Additional history exists Flu vaccine (#1) 11/20/2024 04/12/2023, , 03/03/2021, Additional history exists Depression Screen 03/26/2025 03/26/2024, 03/26/2024 Breast cancer screen 04/21/2026 04/21/2024, 03/26/2023, 12/08/2021, Additional history exists Respiratory Syncytial Virus (RSV) or age 60 yrs+ (1 - 1-dose 75+ series) 2032 Shingles vaccine Completed 03/26/2020, 01/01/2020 DEXA (modify frequency per FRAX score) Completed 03/27/2023, 08/27/2016 Cervical cancer screen Discontinued Pap smear Discontinued 03/26/2024, 02/22, 03/21/2023, Additional history exists HPV (without or with Pap) Discontinued Hepatitis A vaccine Aged Out No longe r eligible based on patient's age to complete this topic Hepatitis B vaccine Aged Out No longe r eligible based on patient's age to complete this topic Hib vaccine Aged Out No longer eligi ble based on patient's age to complete this topic Meningococcal (ACWY) vaccine Aged Out No longer eligible based on patient's age to complete this topic Meningococcal B vaccine Aged Out No l onger eligible based on patient's age to complete this topic Polio vaccine Aged Out No longer elig ible based on patient's age to complete this topic Procedures Procedure Name Priority Date/Time Associated Diagnosis Comments GARETH JEREMIAH DIGITAL SCREEN BILATERAL Routine 04/21/2024 2:39 PM EST Screening mammogram, encounter for DEXA BONE DENSITY AXIAL SKELETON Routine 03/27/2023 1:38 PM EST Menopause FRETTED INSTRUMENT INSPECTOR CYTOLOGY Routine 03/21/2023 12:00 AM EST LIPID PANEL Routine 09/29/2019 from Last 3 Months or Most Recently Relevant to Health Maintenance Results * GARETH JEREMIAH DIGITAL SCREEN BILATERAL (04/21/2024 2:39 PM EST) Anatomical Region Laterality Modality Breast Bilateral Mammography 04/23/2024 12:5 1 PM EST Impressions 04/23/2024 12:52 PM EST No evidence of malignancy seen in either breast. Advise annual screening mammography. BREAST DENSITY SUMMARY C: The breasts are heterogeneously dense which may obscure small masses. Breast tissue can be either dense or not dense. Dense tissue makes it harder to find breast cancer on a mammogram and also raises the risk of developing breast cancer. Your breast tissue is DENSE. In some people with dense tissue, other imaging tests in addition to mammogram may help find cancers. Talk to your health care provider about breast density, risks for breast cancer, and your individual situation. BI-RADS 1 BIRADS: BIRADS - CATEGORY 1 Negative, no evidence of malignancy. Normal interval follow-up is recommended in 12 months. OVERALL ASSESSMENT - NEGATIVE A letter of notification will be sent to the patient regarding the results. The [employer] recommends annual mammograms for women 40 years and older. Performing Facility: [place] [address] Narrative 04/23/2024 12:52 PM EST EXAMINATION: SCREENING DIGITAL BILATERAL MAMMOGRAM WITH TOMOSYNTHESIS, 04/21/2024 TECHNIQUE: Screening mammography was performed with tomosynthesis including MLO and CC views of the bilateral breasts. Computer aided detection was used for the interpretation of this exam. COMPARISON: 26 March 2023; 08 December 2021 HISTORY: Screening. No family history of breast cancer. No HRT therapy or breast interventions. TC score 4.94 FINDINGS: Bilateral breasts are composed of heterogeneously dense parenchyma. No skin thickening, nipple contour changes, suspicious calcifications, suspicious masses, areas of architectural distortion or significant interval changes are noted. Soumya Patten GEAR REPAIRER - [facility] IM MAMMOGRAPHY ORDERABLES Final Result * DEXA BONE DENSITY AXIAL SKELETON (03/27/2023 1:38 PM EST) Anatomical Region Laterality Modality Head, C-spine, T-spine, L-spine, Chest Radiographic Imaging 03/27/2023 2:11 PM EST Impressions 03/29/2023 1:25 PM EST Normal bone mineral density by WHO criteria. [...] have additional risk factors. Template code: [id number]_[id number] Narrative 03/29/2023 1:25 PM EST EXAMINATION: BONE DENSITOMETRY 03/27/2023 1:38 pm TECHNIQUE: A bone density dual x-ray absorptiometry (DXA) scan was performed of the lumbar spine and left hip on a [employer] system. COMPARISON: 08/27/2016 HISTORY: ORDERING SYSTEM PROVIDED [...] exam date listed above. FRAX: Not Indicated. Procedure Note Paola Saenz MD - 03/29/2023 EXAMINATION: BONE DENSITOMETRY 03/27/2023 1:38 pm TECHNIQUE: A bone density dual x-ray absorptiometry (DXA) scan was performed of the lumbar spine and left hip on a [employer] system. COMPARISON: 08/27/2016 HISTORY: ORDERING SYSTEM PROVIDED [...] Consider FDA-approved medical therapies in postmenopausal women andmen aged 50 years and older, based on [...] of a hip fracture greater than or equalto 3% or a 10-year probability of a major osteoporosis-related fracturegreater than or equal to 20% based on FRAX calculation. - Clinician judgment and/or patient preferences may indicate treatmentfor people with 10-year fracture probabilities above or below these levels - Further guidance on treatment can be found at the NationalOsteoporosis Foundation's website bonesource.org. 3. Patients with diagnosis of osteoporosis or at high risk for fracture should have regular bone mineral density tests. For patients eligiblefor Medicare, routine testing is allowed once every 2 years. The testing frequency can be increased to one year for patients who have rapidly progressing disease, those who are receiving or discontinuing medicaltherapy to restore bone mass or have additional risk factors. Template code: [id number]_[id number] Soumya Patten GEAR REPAIRER - CNM IMG DEXA ORDERAB LES Final Result * FRETTED INSTRUMENT INSPECTOR Cytology (03/21/2023 12:00 AM EST) Cytology Report Path Number: [id number] DIAGNOSIS Imaged ThinPrep Pap - Vaginal (1 monolayer slide): Specimen Adequacy: Satisfactory for evaluation. Descriptive Diagnosis: Negative for intraepithelial lesion or malignancy. Cytotech Screener: EY Electronically Signed Out Haile AYALA(ASCP) ey/03/27/2023 Source of Specimen: A: Imaged ThinPrep Pap - Vaginal (1 monolayer slide) Clinical History Estrogen Hysterectomy Z12.72 Vaginal pap post hysterectomy, non malignant condition Processing Lab: [address] [address] Interpretation performed at [address] [address] This Pap Test has been evaluated with the assistance of the ThinPrep Pap Test Imaging System. The Pap smear is a screening test primarily for squamous epithelial lesions, which is subject to both false negative and false positive results. Your patient should be reminded to consult you immediately if she experiences any suspicious signs or symptoms, regardless of her Pap smear result. GYNECOLOGIC CYTOLOGY REPORT Patient Name: CHATA KENNEDY. Med Rec: [id number] [facility] [employer] (acquired by [employer] in 2014) CONSULTING PATHOLOGISTS [facility] ANATOMIC PATHOLOGY [address] [place] [address]. [place], [place] [address] [facility] [employer] 03/21/2023 03/22/2023 8:1 8 AM EST Soumya Patten GEAR REPAIRER - CNM PATHOLOGY/CYTOLO GY ORDERABLES Final Result [facility] [address] [place], [place] [address] [phone] [facility] [employer] * Lipid Panel (09/29/2019) BLOOD SPECIMEN / Unknown Historical Provider CHEMISTRY ORDERABLES Yamila wu Result from Last 3 Months or Most Recently Relevant to Health Maintenance Insurance [employer] Care Teams Diesel Engine Engineer Relationship Specialty Start Date End Date Pretty Ornelas MD PCP - General Family Medicine 08/21/18
--- OUTSIDE RECORDS SUMMARY | 2024-11-09 09:10 | XMS_ITS | Clinical Summary ---
Author Organization [employer] tem Address [id number] [address] [place] [address] Care Team Providers Care Flower Picker Name Role Phone Pretty Ornelas MD Primary Care Provider [phone] Allergies No known active allergies Medications dilTIAZem CD (CARDIZEM CD) 120 mg 24 hr capsuleIndicati ons:hypertensio n Take 1 capsule (120 mg total) by mouth daily. 30 capsule 5 8 Active fluticasone (FLONASE) 50 mcg/actuation nasal sprayIndication s:Acute seasonal allergic rhinitis due to pollen Administer 2 sprays into each nostril daily. 15.8 mL 3 8 Active Additional Information Patient taking differently:2 spray nasalDaily PRN, Reported on 09/05/2022 multivitamin-mi nerals-lutein (MULTIVITAMIN 50 PLUS) tablet Take 1 tablet by mouth in the morning. Active cholecalciferol , vitamin D3, (VITAMIN D3) 2,000 units capsule Take 2 capsules (4,000 Units total) by mouth in the morning. Active simvastatin (ZOCOR) 40 mg tablet Take 1 tablet (40 mg total) by mouth nightly. Active Lactobac no.41/Bifidobac t no.7 (PROBIOTIC-10 ORAL) Take by mouth. Activ e glucosam/monae-m sm1/C/jatin/bosw (GLUCOSAMINE-CH ONDROITIN 3X ORAL) Take 1,500 mg by mouth in the morning. 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 Chronic kidney disease, stage 2 (mild) 3 Acute seasonal allergic rhinitis due to pollen 0 09/02/2017 Elevated triglycerides with high cholesterol Post-menopausal 04/17/2017 Heart murmur 04/17/2017 Immunizations Immunization Administration Dates Next Due Influenza, Injectable, quadrivalent (PF) 017 Family History Medical History Relation Name Comments Hypertension Brother Heart disease Father Hypertension Father Lung cancer Father Heart disease Mother Relation Name Status Comments Brother Father Mother Social History Tobacco Use Types Packs/Day Years Used Date Smoking Tobacco: Never Cigarettes Smokeless Tobacco: Never Tobacco Cessation:Counseling Given: Yes Alcohol Use Standard Drinks/Week Comments Yes 1 [...] Sign Reading Time Taken Comments Blood Pressure 138/83 09/05/2022 1:40 PM EDT Pulse 87 09/05/2022 1:40 PM EDT Temperature 36.5 C (97.7 F) 04/27/2021 1:02 PM EST Respiratory Rate - - Oxygen Saturation 98% 09/02/2017 9:45 AM EDT Inhaled Oxygen Concentration - - Weight 67.1 kg (148 lb) 09/05/2022 1:37 PM EDT Height 162.6 cm (5' 4 ) 04/27/2021 1:02 PM EST Body Mass Index 25.4 04/27/2021 1:02 PM EST Plan of Treatment Health Maintenance Due Date Last Done Comments Depression Screening 1967 Tobacco Screening 1969 DTaP,Tdap and Td Vaccines (1 - Tdap) 1976 Mammogram 08/27/2017 08/27/2016 Fall Risk Screening 2022 Adult BMI Screening 09/06/2023 09/05/2022 COVID-19 Vaccine (2023-2 5 season) 2023 03/09/2022, 08/18/2021, 03/15/2021, Additional history exists Influenza Vaccine 12/21/2024 03/09/2022, , 01/01/2020, Additional history exists Zoster (Shingles) Vaccine Completed 03/26/2020, 02/2020 Medical Devices Not on file Procedures Procedure Name Priority Date/Time Associated Diagnosis Comments MAMMOGRAPHY Routine 08/27/2016 from Last 3 Months or Most Recently Relevant to Health Maintenance Results * MAMMOGRAPHY (08/27/2016) Anatomical Region Laterality Modality Other 08/27/2016 us Scanning Provider External HEALTH MAINTENANCE Fi nal Result from Last 3 Months or Most Recently Relevant to Health Maintenance Insurance [employer] [facility] MEDICARE Care Teams Flower Picker Relationship Specialty Start Date End Date Pretty Ornelas MD [address] [place] [id number] PCP - General Family Medicine 04/27/21
--- OUTSIDE RECORDS SUMMARY | 2024-11-09 09:10 | XMS_ITS | Encounter Summary ---
Author Organization [facility] Address [address] [facility] [address], [address] [place] [address] Care Team Providers Care Certified Hearing Instrument Dispenser Name Role Phone Pretty Ornelas MD Primary Care Provider [phone] Reason for Visit * Reason Comments Medication Refill Encounter Details Date Type Department Care Team (Late Contact Info) Description 07/26/2017 Refill [facility] LINK ASSEMBLER [address] [place] [address] [address] [place] [id number] Soumya Patten, ADMINISTRATION VICE PRESIDENT - [address] [place] [address] Medication Refill Social History Tobacco Use Types Packs/Day Years Used Date Smoking Tobacco: Never Assessed Comments Unknown Sex and Gender Information Value Date Recorded Sex Assigned at Not on file Legal Sex Female 6:43 PM EST Gender Identity Not on file Sexual Orientation Not on file documented as of this encounter Plan of Treatment Upcoming Encounters Date Type Department Care Team (Late Contact Info) Description 03/30/2025 2:45 PM EST Office Visit [facility] OBSTETRICS & GYNECOLOGY Part of [address] [place] [address] Soumya Patten, ADMINISTRATION VICE PRESIDENT - [address] [place] [address] yearly documented as of this encounter Visit Diagnoses Not on filedocumented in this encounter Care Teams Certified Hearing Instrument Dispenser Relationship Specialty Start Date End Date Pretty Ornelas MD PCP - General Family Medicine 08/21/18 documented as of this encounter
--- OUTSIDE RECORDS SUMMARY | 2024-11-09 09:10 | XMS_ITS | Encounter Summary ---
Author Organization [employer] [facility] tem Address [id number] [address] [place] [address] Care Team Providers Care Customer Care Consultant Name Role Phone Pretty Ornelas MD Primary Care Provider [phone] Encounter Details Date Type Department Care Team (Late st Contact Info) Description 07/17/2022 Telephone PHN [facility] [address] [place] [address] Erika Cardenas LPN Social History Tobacco Use Types Packs/Day Years [...] documented as of this encounter Care Teams Customer Care Consultant Relationship Specialty Start Date End Date Pretty Ornelas MD [address] [facility] [place] [id number] PCP - General Family Medicine 04/27/21 documented as of this encounter
--- OUTSIDE RECORDS SUMMARY | 2024-11-09 09:10 | XMS_ITS | Encounter Summary ---
Author Organization [facility] Address [address] [place] [phone] Phone Care Team Providers Care Court Officer Name Role Phone Generic Provider, No Assigned Pcp MD Primary Car e Provider Unavailable Reason for Referral * Imaging (Routine) - Closed Specialty Diagnoses / Procedures Referred By France reynolds Referred To Contact Radiology Diagnoses Other specified counseling Procedures CT cardiac scoring wo IV contrast Pretty Ornelas MD [address] [place] [phone] Phone: tel: fax: Referral ID Status Reason Start Date Expiration Date V isits Requested Visits Authorized [id number] Closed Perform Procedure 03/08/2023 03/07/2024 1 1 Encounter Details Date Type Department Care Team (Latest Contact Info) Description 03/08/2023 Transcribe Orders [facility] [address] [place] [address] Pretty Ornelas MD [address] [place] [id number] Other specified counseling (Primary Dx) Social History Tobacco Use Types Packs/Day Years Used Date Smoking Tobacco: Never Assessed Comments Unknown Sex and Gender Information Value Date Recorded Sex Assigned at Not on file Legal Sex Female 10:27 AM EST Gender Identity Not on file Sexual Orientation Not on file documented as of this encounter Plan of Treatment Not on file documented as of this encounter Results * CT cardiac scoring wo IV contrast (04/16/2023 12:45 PM EST) Anatomical Region Laterality Modality Thoracic, Chest Computed Tomogra phy 04/16/2023 1:53 PM EST 04/16/2023 3:01 PM EST Addenda Addendum by Jairo Rosario MD on 04/16/2023 3:00 PM EST Interpreted By: Jairo Rosario, ADDENDUM: NON-CARDIOVASCULAR FINDINGS [...] STRUCTURES ARE THE SOLE RESPONSIBILITY OF THE [employer] FLOOR INSTALLER SUBMITTING THE ORIGINAL REPORT (NOT THIS ADDENDUM) Signed by: Jairo Rosario 04/16/2023 3:00 PM -------- ORIGINAL REPORT -------- Dictation workstation: [id number] Impressions 04/16/2023 1:51 PM EST 1. Coronary artery calcium score of 0*. *Coronary artery calcium scoring may be helpful in predicting the risk for future coronary heart disease events. According to the [employer] Clinical Expert Consensus [...] modify other non-lipid coronary risk factors. Reference: Hickman P et al. Circulation. 2007; 115:402-426 [employer] Set Up Mechanic: Dr. Robin Connolly, Date: 04/16/2023 1:51 pm Signed by: Robin Connolly 04/16/2023 1:51 PM Dictation workstation: [id number] Narrative 04/16/2023 1:51 PM EST Interpreted By: Robin Connolly, STUDY: CT CARDIAC SCORING WO IV CONTRAST; 04/16/2023 12:45 pm INDICATION: Signs/Symptoms:.. COMPARISON: None. ACCESSION NUMBER(S): [id number] ORDERING CLINICIAN: PRETTY ORNELAS TECHNIQUE: Using prospective ECG gating, CT scan [...] in size. No pericardial effusion is present. Procedure Note Robin Connolly DO / Jairo Rosario MD - 04/16/2023 Interpreted By: Robin Connolly, STUDY: CT CARDIAC SCORING WO IV CONTRAST; 04/16/2023 12:45 pm INDICATION: Signs/Symptoms:.. COMPARISON: None. ACCESSION NUMBER(S): [id number] ORDERING CLINICIAN: PRETTY ORNELAS TECHNIQUE: Using prospective ECG gating, CT scan [...] coronary heart disease events. According to the [employer] Clinical Expert Consensus [...] P et al. Circulation. 2007; 115:402-426 [employer] Set Up Mechanic: Dr. Robin Connolly, Date: 04/16/2023 1:51 pm Signed by: Robin Connolly 04/16/2023 1:51 PM Dictation workstation: [id number] us Pretty Ornelas MD IMG CT PROCEDURES Edited Resul t - Final documented in this encounter Visit Diagnoses Diagnosis Other specified counseling- Primary Other specified counseling documented in this encounter Care Teams Court Officer Relationship Specialty Start Date End Date Generic Provider, No Assigned PcpMD PCP - General Family Medicine 04/11/23 documented as of this encounter
[2024-11-09 09:33] LABS: Glucose Urine UA NEGATIVE (NEGATIVE)
[2024-11-09 09:33] LABS: Hematocrit 37.9 % (36.0-48.0); Hemoglobin 13.0 g/dL (12.0-16.0); Immature Granulocytes Abs Auto 0.01 10^3/uL (0.00-0.03); Immature Granulocytes Pct Auto 0.3 % (0.0-0.5); Lymphocytes Absolute Auto 1.6 10^3/uL (1.2-3.8); Mean Corpuscular HGB Conc 34.3 g/dL (29.9-35.2); Mean Corpuscular Hemoglobin 29.5 pg (26.7-34.0); Mean Corpuscular Volume 86.1 fL (81.0-99.0); Platelet Count 275 10^3/uL (150-450); Red Blood Count 4.40 10^6/uL (4.20-5.40); White Blood Count 3.7 10^3/uL (4.0-11.0)
--- OUTSIDE RECORDS SUMMARY | 2024-11-09 09:33 | XMS_ITS | CCD ---
Author Organization [facility] Care Team Providers Care Axle Bearing Polisher Name Role Phone Pretty Culp Primary Care Provider [phone] PRETTY CULP Referring Unavaila ble GENERIC PROVIDER, NO ASSIGNED PCP Primary Care Unavailable PRETTY CULP Primary Care Physician Robin Yanez MD Attending Provider [phone] Robin YANEZ Attending Unavailable BEAU, Robin Sal Attending Unavailable BEAU, Robin Sal Attending Unavailable Pretty Culp MD Primary Care Provider [phone] PRETTY CULP Primary Care Unavailable SOUMYA PATTEN Referring UnavailPRETTY Carson Primary Care Unavailable SOUMYA PATTEN Referring UnavailPretty Carson MD Primary Care Provider Chilango Pepper MCGRATH Attending Provider Robin Yanez Admitting Unavailable Beau, Robin Sal Attending Unavailable ChilangoPepper noguera Admitting Unavailable Pepper Kee Attending Unavailable Pretty Culp Primary Care Unavailable Allergies Allergy Classification Reported Allergen(s) Allergy Type Date of Onset Reaction(s) Facility (1 source) ALLERGIES NOT ON FILE; Translations: [ALLERGIES NOT ON FILE] Propensity to adverse reactions (disorder) [facility] Repository (1 source) No Known Medication Allergies; Translations: [No Known Medication Allergies] Propensity to adverse reactions (disorder) [facility] Repository Medications Current Medications Medication Drug Class(es) Dates Sig (Normalized) Sig (Original) calcium citrate 1500 mg / cholecalciferol 250 unt oral tablet (3 sources) Vitamin D take 1 tablet by mouth twice daily at mealtime calcium citrate-vitamin D (CITRICAL + D) 315-250 MG-UNIT TABS per tablet Take 1 tablet by mouth 2 times daily (with meals) Active Diltiazem Hydrochloride ER 120 mg/24 hours oral capsule, extended release (2 sources) Start: 10-28-2019 take 1 capsule by mouth [...] Start: 09-10-2018 take 1 tablet by ashley th once daily estradiol (ESTRACE) 0.5 MG tablet Indications: Menopause Take 1 tablet by mouth daily 90 tablet 3 02/21/2021 Active Flonase 0.05 mg/inh nasal spray (2 sources) Start: 10-28-2019 Flonase 0.05 m g/inh nasal spray 2 spray(s), Nasal, Daily, Refill(s) 0 Start Date: 10/28/19 Status: Ordered fluticasone propionate 0.05 mg/actuat metered dose nasal spray (6 sources) Corticosteroid fluticasone (MARCOS NASE) 50 MCG/ACT nasal spray 1 spray by Nasal route as needed Active Fluticasone Prp-Sod.Chl,Bicarb (1 source) Start: 10-04-2023 Fluticasone Prp-Sod.Chl,Bicarb Active 2 EACH INTRANASAL daily October 04, 2023 12:00am Fluticasone Prp-Sod.Chl,Bicarb 50 mcg- 0.9 % kit,spray suspension and spray (3 sources) Start: 10-04-2023 Fluticasone Prp-Sod.Chl,Bicarb 50 mcg- 0.9 % kit,spray suspension and spray Active 2 EACH INTRANASAL daily October 03, 2023 11:00pm Dlscsnioexx-Gexmimmxg-Vqj C-Mn (GLUCOSAMINE 1500 COMPLEX PO) (2 sources) Glucosamine-Aamir droit-Vit C-Mn (GLUCOSAMINE 1500 COMPLEX PO) Take by mouth Active Multiple Vitamins-Minerals (MULTIVITAL PO) (5 sources) Multiple Vitamins-Minerals (MULTIVITAL PO) Take by mouth Active Multiple Vitamin s-Minerals (MULTIVITAL PO) Take by mouth 0 Active Multivitamin, Therapeutic w/ Minerals (2 sources) Start: 10-29-2019 take 1 tablet by mouth once daily Multivitamin, Therapeutic w/ Minerals 1 tab(s), Oral, Daily, Refill(s) 0 Start Date: 10/29/19 Status: Ordered Probiotic Product (PROBIOTIC DAILY PO) (4 sources) take 1 tablet by mouth once daily Probiotic Product (PROBIOTIC DAILY PO) Take 1 tablet by mouth daily 0 Active Completed/Discontinued Medications Medication Drug Class(es) Dates Sig (Normalized) Sig (Original) 24 hr dilTIAZem hydrochloride 120 mg extended release oral capsule (19 sources) Calcium Channel Ismael Start: 10-04-2023 End: 04-02-2024 take 1 capsule by mouth once daily Diltiazem Hcl 120 mg capsule,extended release 24hr Discontinued 120 MG PO Daily January 03, 2024 10:38am April 02, 2024 1:57pm Start: 09-02-2017 take 1 tablet by ashley th once daily dilTIAZem (CARDIZEM) 120 MG tablet Take 1 tablet by mouth daily 09/02/2017 Active pravastatin sodium 40 mg oral tablet (14 sources) HMG-CoA Reductase Inhibitor Start: 10-28-2019 End: 04-23-2024 take 1 tablet by mouth once daily Pravastatin 40 mg tablet Discontinued 40 MG PO Daily October 03, 2023 11:00pm April 23, 2024 1:21pm Problems Active Problems Problem Classification Problem Date Documented Date Episodic/Chronic Administrative/soci al admission (2 sources) Other specified counseling; Translations: [Other specified counseling] Onset: 3 Episodic Cardiac dysrhythmias (2 sources) Supraventricular tachycardia 01-17-2024 Chronic Chronic kidney disease (6 sources) Chronic kidney disease; Translations: [Chronic kidney disease, unspecified] Onset: 3 11-08-2023 Chronic Disorders of lipid metabolism (14 sources) Mixed hypercholesterolemia and hypertriglyceridemia; Translations: [Mixed hyperlipidemia] Onset: 7 09-04-2017 Chronic Essential hypertension (2 sources) Benign essential hypertension 10-28-2019 Chronic Fracture of lower limb (2 sources) Closed fracture of phalanx of foot; Translations: [Displaced unspecified fracture of left lesser toe(s), initial encounter for closed fracture] 04-30-2024 Episodic Fracture of lower limb (4 sources) Closed fracture of phalanx of foot; Translations: [Displaced unspecified fracture of right lesser toe(s), initial encounter for closed fracture] 04-30-2024 Episodic Nutritional deficiencies (6 sources) Vitamin D deficiency; Translations: [Vitamin D deficiency, unspecified] 11-08-2023 Chronic Other and unspecified benign neoplasm (2 sources) Benign neoplasm of ascending colon; Translations: [Benign neoplasm of ascending colon] Onset: 4 Episodic Other injuries and conditions due to external causes (2 sources) Injury of right foot; Translations: [Unspecified injury of right foot, initial encounter] 04-30-2024 Episodic Other injuries and conditions due to external causes (1 source) Unspecified injury of right foot, initial encounter; Translations: [Unspecified injury of right foot, initial encounter] Onset: 5 Episodic Other nutritional; endocrine; and metabolic disorders (2 sources) Overweight 01-17-2024 Episodic Other nutritional; endocrine; and metabolic disorders (2 sources) Overweight in adulthood with body mass index of 25 or more but less than 30 01-28-2024 Episodic Other screening for suspected conditions (not mental disorders or infectious disease) (16 sources) Patient encounter status; Translations: [Encounter for screening mammogram for malignant neoplasm of breast] Onset: 2 Resolved: 8 Episodic Other skin disorders (2 sources) Epidermoid cyst of skin 10-29-2019 Episodic Other upper respiratory disease (6 sources) Allergic rhinitis due to pollen; Translations: [Allergic rhinitis due to pollen] Onset: 8 09-04-2017 Chronic Other upper respiratory disease (2 sources) Seasonal allergic rhinitis 10-28-2019 Chronic Unclassified (6 sources) Patient encounter status; Translations: [Visit for screening mammogram] Onset: 2 Resolved: 8 02-17-2018 Past or Other Problems Problem Classification Problem Date Documented Date Episodic/Chronic Heart valve disorders (8 sources) Heart murmur; Translations: [Cardiac murmur, unspecified] Onset: 04-17-2017 09-04-2017 Episodic Residual codes; unclassified (6 sources) Postmenopausal state; Translations: [Asymptomatic menopausal state] Onset: 04-17-2017 09-04-2017 Episodic Results Test Name Value Interpretation Reference Range Facility X-ray reportOrdered By: Enrike Coburn on 04-30-2024 Study report [facility] Main [address] [address] XRay Report Signed Patient: Chata Kennedy MR#: [id number] : 1955 Acct:[id number] Age/Sex: 68 / F ADM Date: 5 Loc: XDUC Room: Type: REG CLI Attending Dr: Pepper Kee REGIONAL PRODUCTION MANAGER Copies to: Pepper Kee APRN~ Ordering Provider: Pepper Kee APRN Date of Service: 04/30/24 XR/XR foot RT min 3V*: S99.921A - Unspecified injury of right foot, initial enco... RIGHT FOOT - 3 views CLINICAL HISTORY: Stubbed right foot on chair 12 hours ago now with pain. COMPARISON: None FINDINGS: Soft tissue swelling is present. A mildly displaced fracture is seen involving the proximal phalanx of the fourth digit. No additional fractures are seen. Joint spaces appear maintained. Plantar spurring. XR/XR foot RT min 3V* IMPRESSION: MILDLY DISPLACED FRACTURE PROXIMAL PHALANX FOURTH DIGIT. Impression dictated by: Palomo Coburn Jr., D.O.04/30/2024 10:42 AM Dictation Location: [place] [address] Transcribed By: [facility] 04/30/24 1042 Dictated By: Palomo Coburn Jr, DO 04/30/24 1041 Signed By: 04/30/24 1042 [facility] XR foot RT min 3V*on 025 XR foot RT min 3V* [facility] Main [address] [address] XRay Report Signed Patient: Chata Kennedy MR#: [id number] : 1955 Acct:[id number] Age/Sex: 68 / F ADM Date: 04/30/24 Loc: XDUC Room: Type: REG CLI Attending Dr: Pepper Kee REGIONAL PRODUCTION MANAGER Copies to: Pepper Kee APRN Ordering Provider: Pepper Kee APRN Date of Service: 04/30/24 XR/XR foot RT min 3V*: S99.921A - Unspecified injury of right foot, initial enco... RIGHT FOOT - 3 views CLINICAL HISTORY: Stubbed right foot on chair 12 hours ago now with pain. COMPARISON: None FINDINGS: Soft tissue swelling is present. A mildly displaced fracture is seen involving the proximal phalanx of the fourth digit. No additional fractures are seen. Joint spaces appear maintained. Plantar spurring. XR/XR foot RT min 3V* IMPRESSION: MILDLY DISPLACED FRACTURE PROXIMAL PHALANX FOURTH DIGIT. Impression dictated by: Palomo Coburn Jr., D.O.04/30/2024 10:42 AM Dictation Location: RADIO-PC-22 Transcribed By: [facility] 04/30/24 1042 Dictated By: Palomo Coburn Jr, DO 04/30/24 1041 Signed By: 04/30/24 1042 Normal [facility] DBT Breast - bilateral scree sidney 04-23-2024 No evidence of malignancy seen in either [...] to the patient regarding the results. The [employer] recommends annual mammograms for women 40 years and older. Performing Facility: [place] [address] [facility] RIS CONSOLIDATED EXAMINATION: SCREENING DIGITAL BILATERAL MAMMOGRAM [...] distortion or significant interval changes are noted. [facility] RIS CONSOLIDATED DBT Breast - bilateral scree ningOrdered By: Kelly Tapia on 04-23-2024 [facility] [employer] Work Phone: [facility] [place] DIGITAL SCREEN BILA TERALon 04-23-2024 [facility] DIGITAL SCREEN BILATERAL EXAMINATION: SCREENING DIGITAL [...] changes are noted. IMPRESSION: No evidence of malignancy seen in either [...] to the patient regarding the results. The [place] [employer] recommends annual mammograms for women 40 years and older. Performing Facility: [place] [address] Interpreted by: Kelly Tapia MD Signed by: Kelly Tapia MD 04/23/24 Final result Normal [facility] DBT Breast - bilateral scree andreegon 04-21-2024 Radiology Study observation (narrative) [facility] General Surgery Office/Clini c Noteon 03-24-2024 General Surgery Office/Clinic Note General Surgery Office/Clinic Note Chief Complaint colonoscopy follow up HPI Staff 13 day post operative follow up post colonoscopy with ascending polypectomy. History of Present Illness s/p colonoscopy done for colorectal screening; 2, 3 mm ascending colon polyps removed; not retrieved, specimen sent was vegetable matter; patient denies abd pain or blood in stools. Review of Systems PHQ Score Initial Depression [...] been reviewed and are negative or noncontributory. Assessment/Plan 1. Benign neoplasm of ascending colon (D12.2: Benign neoplasm of ascending colon) plan surveillance colonoscopy in 5 years, call sooner if problems/questions. Follow-up No qualifying data available Problem List/Past Medical History Ongoing Benign essential hypertension Benign neoplasm of ascending colon BMI 25.0-25.9,adult Chronic kidney disease stage 2 Chronic seasonal allergic rhinitis Dyslipidemia Epidermal cyst Heart murmur Mixed hypercholesterolemia and hypertriglyceridemia Overweight Screening for malignant neoplasm of colon SVT (supraventricular tachycardia) Vitamin D deficiency Historical No qualifying data Procedure/Surgical History Colonoscopy (03/11/2024), Colonoscopy (04/03/2012), [facility] BSO - Total abdominal hysterectomy and bilateral [...] lifetime) Tobacco Use:. Never Smokeless Tobacco Use:., 03/24/2024 Family History Heart failure: Mother. Hypertension: Brother. Immunizations Vaccine Date Status influenza virus vaccine, inactivated 04/12/2023 Recorded SARS-CoV-2 (COVID-19) [id number] 03/09/2022 Recorded SARS-CoV-2 (COVID-19) mRNA-1273 vaccine 08/18/2021 Recorded SARS-CoV-2 (COVID-19) mRNA-1273 vaccine 03/15/2021 Recorded SARS-CoV-2 (COVID-19) mRNA-1273 vaccine 08/17/2020 Recorded SARS-CoV-2 (COVID-19) mRNA-1273 vaccine 07/20/2020 Recorded Normal [facility] Comment on above: Result Comment: Elec tronically Signed By: BEAU TAPIA, Robin Christian\Date and Time Signed: 03/24/24 09:41 EST Reminderson 03-24-2024 Reminders Reminders From: Esperanza Mayen LPN To: N - Clinical; Sent: 03/24/2024 09:37:07 EST Show up: 02/08/2029 07:00:00 EDT Subject: colonoscopy recall Due Date/Time: 03/11/2029 07:00:00 EST Reminder/Recall Patient due for surveillance colonoscopy 03/11/2029 due to history of colon polyps. Normal [facility] David 03-11-2024 L --- Specimen: [id number] Received: 03/11/24 Status: SHANTELL Izquierdo Num: [id number] Spec Type: Surgical Subm Dr: Robin Yanez MD FACS Tissues: A Colon Biopsy (ASCENDING COLON POLYPS X2) Procedures: HE/Ana Paula, Gross/Micro L4 Age/ Patient Sex Location Account Attending Physician Chata Kennedy 68/F LABELL [id number] Robin Yanez MD FACS SPEC NUM: [id number] RECD: 03/11/24 STATUS: SHANTELL IZQUIERDO NUM: [id number] AURELIANO: 03/11/24 [facility] DR: Robin Yanez MD FACS ENTERED: 03/11/24 [facility] DR: Pancho Herron SPEC TYPE: Surgical DEPT: SERG ROBERSON ENTERED BY: [id number] RECV BY: [id number] ORDERED: HE/2, Gross/Micro L4 ORDERED: HE/2, Gross/Micro L4 Pathological Diagnosis Polyps, ascending colon, biopsy: Fragments of digested food material. No polyps are identified. Clinical Information Ascending colon polyp x 2 adjacent to each other, colonoscopy with polypectomy Gross Description Part A is received in formalin labeled with the patients name, date of , and ascending colon polyp x 2, adjacent to each other are sanchez-lópez fragments of vegetative material, admixed with possible tissue fragments, 1.5 x 1 x 0.2 cm in aggregate. The specimen is filtered and entirely submitted in a single cassette. (1, ns, [id number]) CPT Codes 30929 Specimen: [id number] Received: 03/11/24 Status: SHANTELL Lelucas Num: [id number] Spec Type: Surgical Subm Dr: Robin Yanez MD FACS Tissues: A Colon Biopsy (ASCENDING COLON POLYPS X2) Procedures: HE/2, Gross/Micro L4 Patient: Chata Kennedy [id number] (Continued) Signed (signature on file) Zuleyka Mcneil MD 03/12/24 1347 [place] [facility] Ambulatory Visit Summaryon 1 Ambulatory Visit Summary Ambulatory Visit Summary CHATA KENNEDY :1955 Visit Date:01/28/2024 Ambulatory Visit Instructions Your Diagnosis Screening for malignant neoplasm of colon Your Care Team Attending Physician - BEAU TAPIA, Robin Sal Primary Care Physician - PRETTY CULP MD This Is Your Medications List Contact prescribing physician if questions or concerns diltiazem (Diltiazem Hydrochloride ER 120 mg/24 hours oral capsule, extended release) fluticasone nasal (Flonase 0.05 mg/inh nasal spray) multivitamin with minerals (Multivitamin, Therapeutic w/ Minerals) pravastatin (pravastatin 40 mg Tab) Procedures Performed Colonoscopy (04/03/2012), [facility] BSO - Total abdominal hysterectomy and bilateral [...] for choosing us for your care. Normal [facility] CT CARDIAC SCORING WO IV CON TRASTon [...] STRUCTURES ARE THE SOLE RESPONSIBILITY OF THE C WPF DEVELOPER SUBMITTING THE ORIGINAL REPORT (NOT THIS ADDENDUM) Signed by: Jairo Rosario 04/16/2023 3:00 PM -------- ORIGINAL REPORT -------- Dictation workstation: [id number] Interpreted By: Robin Connolly, STUDY: CT CARDIAC SCORING WO IV CONTRAST; 04/16/2023 12:45 pm INDICATION: Signs/Symptoms:.. COMPARISON: None. ACCESSION NUMBER(S): [id number] ORDERING CLINICIAN: PRETTY CULP TECHNIQUE: Using prospective [...] coronary heart disease events. According to the [place] [employer] Clinical Expert Consensus [...] modify other non-lipid coronary risk factors. Reference: [place] P et al. Circulation. 2007; 115:402-426 [employer] Boatswain: Dr. Robin Connolly, Date: 04/16/2023 1:51 pm Signed by: Robin Connolly 04/16/2023 1:51 PM Dictation workstation: [id number] [facility] GARETH [place] DIGITAL SCREEN SELF REFERRAL W [...] to the patient regarding the results. The [place] [employer] recommends annual mammograms for women 40 years and older. [facility] EXAMINATION: SCREENING DIGITAL BILATERAL MAMMOGRAM WITH TOMOSYNTHESIS, [...] distortion, or significant interval changes are noted. [facility] CONSOLIDATED Kelly Tapia MD - 12/09/2021 EXAMINATION: SCREENING DIGITAL BILATERAL [...] to the patient regarding the results. The [place] [employer] recommends annual mammograms for women 40 years and older. [employer] Phone: [facility] [place] DIGITAL SCREEN SELF REFERRAL W OR WO CAD BILATERALOrdered By: Kelly Tapia on 12-09-2021 [employer] Phone: [facility] [place] DIGITAL SCREEN SELF REFERRAL W OR WO CAD BILATERALon 12-08-2021 Radiology Study observation (narrative) SARTHAK MELTON [employer] Phone: [employer] [place] DIGITAL SCREEN SELF REFERRAL W OR WO CAD BILATERALOrdered By: Pretty Culp on 12-08-2020 No mammographic evidence of malignancy. BI-RADS 1 BIRADS: BIRADS - CATEGORY 1 Negative, no evidence of malignancy. Normal interval follow-up is recommended in 12 months. OVERALL ASSESSMENT - NEGATIVE A letter of notification will be sent to the patient regarding the results. The [place] [employer] recommends annual mammograms for women 40 years and older. [employer] Phone: EXAMINATION: SCREENI NG DIGITAL BILATERAL MAMMOGRAM [...] suspicious microcalcification, or area of architectural distortion. [employer] Phone: [employer] Phone: [employer] [place]EM[place] DIGITAL SCREEN BILA TERALon 12-09-2019 No evidence of malignancy. Advise [...] screening mammogram in 1 year is advised. [employer]- [place], [place] EXAMINATION: SCREENI NG DIGITAL BILATERAL MAMMOGRAM WITH [...] There is little change from prior exam. [place], [place] Aba, M[facility]pn Incoming Radiant Results From [employer] - 12/09/2019 10:08 AM EDT EXAMINATION: SCREENING [...] screening mammogram in 1 year is advised. [facility] [place] Vital Signs Date Time Vital Sign Value Performing Clinician Titusi char 04-30-2024 10:16050 Body height 165.1 cm Pretty Culp MD Work Phone: [facility] 04-30-2024 10:16-0500 Body mass index (BMI) [Ratio] 25 kg/m2 Pretty Culp MD Work Phone: [facility] 04-30-2024 10:16-0500 Body temperature 99.9 [degF] Pretty Culp MD Work Phone: [facility] 04-30-2024 10:16-0500 Body weight 68.26 kg Pretty Culp MD Work Phone: [facility] 04-30-2024 10:16-0500 Diastolic blood pressure 78 mm[Hg] Pretty Culp MD Work Phone: [facility] 04-30-2024 10:16-0500 Heart rate 98 /min Pretty Culp MD Work Phone: [facility] 04-30-2024 10:16-0500 Respiratory rate 18 /min Pretty Culp MD Work Phone: [facility] 04-30-2024 10:16-0500 SaO2% (BldA) [Mass fraction] 98 % Pretty Culp MD Work Phone: [facility] 04-30-2024 10:16-0500 Systolic blood pressure 135 mm[Hg] Pretty Culp MD Work Phone: [facility] 04-21-2024 14:29-0500 Body height 165.1 cm [facility] 04-21-2024 14:29-0500 Body mass index (BMI) [Ratio] 24.96 kg/m2 [facility] 04-21-2024 14:29-0500 Body weight 68.04 kg [facility] 01-28-2024 13:18-0400 Blood Pressure Location Robin YANEZ [facility] 01-28-2024 13:18-0400 Diastolic blood pressure 72 mm[Hg] Robin YANEZ [facility] 01-28-2024 13:18-0400 Heart rate 72 /min Robin YANEZ [facility] 01-28-2024 13:18-0400 Respiratory rate 16 /min Robin YANEZ [facility] 01-28-2024 13:18-0400 Systolic blood pressure 138 mm[Hg] Robin YANEZ [facility] 11-18-2023 10:04-0400 Body height 163.83 cm [facility] 11-18-2023 10:04-0400 Body mass index (BMI) [Ratio] 25.2 kg/m2 [facility] 11-18-2023 10:04-0400 Body weight 67.58 kg [facility] 11-18-2023 10:04-0400 Diastolic blood pressure 66 mm[Hg] [facility] 11-18-2023 10:04-0400 Heart rate 75 /min [facility] 11-18-2023 10:04-0400 Systolic blood pressure 122 mm[Hg] [facility] Encounters Encounter Date Encounter Type Care Provider Facility Start: 04-30-2024 End: 04-30-2024 ambulatory Pretty Culp MD Work Phone: [facility] Work Phone: Start: 04-30-2024 End: 04-30-2024 Patient encounter procedure Pretty Culp MD Work Phone: [facility] Work Phone: Start: 04-21-2024 End: 04-23-2024 ambulatory PRETTY CULP [facility] Start: 04-21-2024 End: 04-23-2024 Subsequent hospital visit by physician [facility] Comment on above: Screening mammogram, encounter for Start: 03-26-2024 End: 03-26-2024 ambulatory PRETTY CULP [facility] Start: 03-26-2024 End: 03-26-2024 Subsequent hospital visit by physician Pretty Culp MD Work Phone: [facility] Start: 03-24-2024 End: 03-24-2024 ambulatory Robin YANEZ [facility] Start: 03-24-2024 End: 03-24-2024 Patient encounter procedure Robin YANEZ [facility] Start: 03-11-2024 End: 03-11-2024 ambulatory Robin Yanez [facility] Work Phone: Start: 03-11-2024 End: 03-11-2024 Departed Referred Robin Yanez MD Work Phone: [facility] Start: 03-11-2024 End: 03-11-2024 ambulatory Robin YANEZ Facility:[id number] Start: 01-28-2024 End: 01-28-2024 ambulatory Robin YANEZ [facility] Start: 01-28-2024 End: 01-28-2024 Patient encounter procedure Robin YANEZ [facility] [place] Start: 11-18-2023 Patient encounter procedure Robin Yanez MD Work Phone: [facility] Start: 11-18-2023 End: 11-18-2023 ambulatory [facility] Work Phone: Start: 11-18-2023 End: 11-18-2023 Patient encounter procedure [facility] Work Phone: Start: 11-08-2023 Patient encounter status [facility] Start: 04-16-2023 End: 04-17-2023 [facility] Start: 12-08-2021 End: 12-10-2021 Subsequent hospital visit by physician [facility] Comment on above: Breast cancer screen ing by mammogram Start: 12-08-2020 End: 12-10-2020 Subsequent hospital visit by physician [facility] Comment on above: Breast cancer screen ing by mammogram Start: 01-20-2020 End: 01-20-2020 Subsequent hospital visit by physician Pretty Culp [facility] Comment on above: Screening for vagina l cancer Start: 12-08-2019 End: 12-10-2019 Subsequent [facility] Mammography Room At [facility] Mammography Comment on above: Visit for screening mammogram Procedures Date Procedure Procedure Detail Performing Clinician Start: 04-30-2024 X-ray of right foot Adia Culp MD Work Phone: Start: 04-21-2024 Screening mammograph y bi 2-view breast inc cad Soumya Patten REGIONAL PRODUCTION MANAGER - CNM Work Phone: Start: 03-11-2024 Colonoscopy Robin CANCINO Start: 04-16-2023 CT CARDIAC SCORING W O [...] Total abdominal hysterectomy with bilateral salpingo-oophorectomy Robin YANEZ Removal of pilonidal cyst Maria Victoria td YANEZ Comment on above: 1984 Plan of Treatment Date Care Activity Detail Author Start: 2032 Respiratory Syncytia l Virus (RSV) or age 60 yrs+ (1 - 1-dose 75+ series) Respiratory Syncytial Virus (RSV) or age 60 yrs+ (1 - 1-dose 75+ series) [facility] Start: 04-21-2026 Screening for malign ant neoplasm of breast Breast cancer screen [facility] Start: 03-30-2025 End: 03-30-2025 Patient encounter procedure 03/30/2025 2:45 PM EST Office Visit [facility] [address] [place] [address] Soumya Patten, ALCIDES - CNRas [address] [place] [address] [address] [place] [address] yearly [facility] Comment on above: yearly Start: 03-26-2025 Depression Screen Depression Screen [facility] Start: 03-26-2025 Screening for malign ant neoplasm of breast Breast cancer screen [facility] [place] Start: 04-30-2024 Patient referral [facility] Work Phone: Start: 04-21-2024 End: 04-21-2024 Patient encounter procedure 04/21/2024 2:30 PM EST Appointment [facility] [address] [place] [address] screening [facility] Comment on above: screening Start: 12-22-2023 COVID-19 Vaccine () COVID-19 Vaccine () [facility] [place] Start: 12-22-2023 COVID-19 Vaccine () COVID-19 Vaccine () [facility] Start: 12-09-2023 Screening for malign ant neoplasm of breast Breast cancer screen [facility] Start: 11-21-2023 Influenza vaccination Flu vaccine (# 1) [facility] Start: 11-18-2023 Patient referral [facility] Work Phone: Start: 03-21-2023 Annual Wellness Visi t (Medicare) Annual Wellness Visit (Medicare) [facility] Start: 01-19-2023 Screening for malign ant neoplasm of cervix Cervical cancer screen [facility] Phone: Start: 12-08-2022 Screening for malign ant neoplasm of breast Breast cancer screen [facility] Phone: Start: 2022 Pneumococcal 65+ yea rs Vaccine (1 of 1 - PCV) Pneumococcal 65+ years Vaccine (1 of 1 - PCV) [facility] Start: 02-21-2022 End: 02-21-2022 Patient encounter procedure 02/21/2022 Office Visit Obstetrics and Gynecology Soumya Patten, REGIONAL PRODUCTION MANAGER - CNM [address] [facility] [address] [place] [address] [facility] Start: 02-17-2022 Depression Screen Depression Screen [facility] Start: 12-21-2021 Influenza vaccination Flu vaccine (# 1) [facility] Start: 12-07-2021 Screening for malign ant neoplasm of breast Breast cancer screen [place] Start: 09-10-2021 Screening for malign ant neoplasm of cervix Cervical cancer screen [place] Start: 02-09-2021 End: 02-09-2021 Patient encounter procedure 02/09/2021 Office Visit Obstetrics and Gynecology Soumya Patten, REGIONAL PRODUCTION MANAGER - CN [address] [facility] [address] [place] [address] [facility]OLOG[facility] Start: 12-21-2020 Influenza vaccination Flu vaccine (# 1) [facility] Phone: Start: 09-28-2020 Lipid panel [facility] Start: 02-26-2020 Shingles Vaccine (2 of 2) Shingles Vaccine (2 of 2) [facility] Phone: Start: 01-20-2020 End: 01-20-2020 Office Visit 01/20/2020 Office Visit Obstetrics and Gynecology Soumya Patten, ALCIDES - [facility] [address] [facility] [address] [place], [place] [id number] [facility]ST[facility]YNECOLOGY Start: 12-22-2019 Influenza vaccination Flu vaccine (# 1) [place] Start: 2007 Screening for malign ant neoplasm of colon Colon cancer screen colonoscopy [place] Start: 2007 Shingles Vaccine (1 of 2) Shingles Vaccine (1 of 2) [place] Start: 2002 Screening for malign ant neoplasm of colon [facility] Start: 1976 DTaP/Tdap/Td vaccine (1 - Tdap) DTaP/Tdap/Td vaccine (1 - Tdap) [facility] Start: 1975 Hepatitis C screening Hepatitis C sc reen [facility] Start: 1972 HIV screening HIV screen [facility] Start: 1969 COVID-19 Vaccine (1) COVID-19 Vaccin e (1) [facility] Work Phone: Start: 1969 Depression Screen Depression Screen [facility] Start: 1967 Lipid panel Lipid screen [place], [place] Start: 1957 COVID-19 Vaccine (#1) COVID-19 Vacci ne (#1) [facility] Start: 1957 Hepatitis C screening Hepatitis C [facility] [place] End: 01-20-2020 Cytopathology procedure, preparation of smear, genital source PAP SMEAR Lab Routine Screening for vaginal cancer 1 Occurrences starting 01/20/2020 until 01/20/2020 [place] Comment on above: 1 Occurrences starti ng 01/20/2020 until 01/20/2020 Patient referral [facility] Work Phone: Immunizations Immunization Date Immunization Notes Care Provider [facility] 04-12-2023 influenza virus vaccine, unspecified formulation Robin YANEZ [facility] 03-09-2022 COVID-19 mRNA-1273 (Moderna) [facility] 03-09-2022 influenza virus vaccine, unspecified formulation [facility] 03-09-2022 SARS-CoV-2 (COVID-19 ) [id number] Robin YANEZ [facility] 08-18-2021 COVID-19 mRNA-1273 (Moderna) [facility] 03-15-2021 SARS-CoV-2 (COVID-19 ) mRNA-1273 vaccine Robin YANEZ [facility] 03-03-2021 influenza virus vaccine, unspecified formulation [facility] 08-17-2020 SARS-CoV-2 (COVID-19 ) mRNA-1273 vaccine Robin YANEZ [facility] 07-20-2020 SARS-CoV-2 (COVID-19 ) [id number] vaccine Robin YANEZ [facility] 03-26-2020 zoster vaccine, live [facility] 01-01-2020 influenza virus vaccine, unspecified formulation [facility] 01-01-2020 zoster vaccine, live [facility] Payers Date Payer Category Payer Unknown [id number] 2024 Self-pay 2022 Medicare [id number] 2020 Unknown ADOLFO GONZALEZ [facility] [id number] 2020-Present [phone] [facility] [place] [address] [id number] 2014 Unknown [id number] 1957 Unknown [id number] 1957 Unknown [id number] 1957 Unknown [id number] 1957 Unknown [id number] 1957 Unknown [id number] 1957 Unknown [id number] Unknown [facility] [id number] Unknown [id number] Unknown [id number] Social History Date Type Detail Facility Start: 10-07-2018 End: 11-12-2022 Tobacco smoking status NHIS Never smoker [place] Start: 10-07-2018 End: 03-26-2024 Tobacco use and exposure Never used [place] Start: 10-07-2018 End: 12-08-2020 Alcohol intake Current drinker of alcohol (finding) [place] Start: 09-04-2017 Alcohol Comment rarely [place], [place] Start: 1955 Sex Assigned At Not on file M [place], [place] Exposure to SARS-CoV -2 (event) Not sure [place] Start: 02-17-2021 End: 04-21-2024 Alcohol intake Ex-drinker (finding) [facility] Work Phone: Start: 1955 Sex Assigned At Female F [facility] Tobacco smoking status Never [facility] Start: 03-26-2024 End: 04-21-2024 Sex Assigned At Female [facility] Start: 03-12-2024 End: 05-01-2024 Sex Female (finding) [facility] Start: 03-26-2024 End: 04-21-2024 History of Social function [facility] (I/We) worried wheth er (my/our) food would run out before (I/we) got money to buy more. Never true [place] At any time in the p ast 12 months, were you homeless or living in senior living [including now]? No [facility] Functional Status Date Assessment Result Facility 03-24-2024 Functional Status N/A [facility] 01-28-2024 Functional Status N/A [facility] Clinical Notes 01-28-2024 to 04-30-2024 Note Date & Type Note Facility 04-30-2024 Evaluation note Diagnosis Onset Date Resolution Fracture of fourth toe, right, closed acute April 30, 2024 10:08am [facility] Work Phone: 1(741) 949-504910-08-2024 NoteGeneral Surgery Office/Clinic Note Chief Complaint consultation for colonoscopy HPI [...] swallowing difficulties, no hearing loss, no ear infection(s),no nose bleeds. Cardiovascular: normal blood pressure, no [...] No qualifying data Procedure/Surgical History Colonoscopy (04/03/2012), [facility] - Total abdominal hysterectomy and bilateral [...] virus vaccine, inactivated 04/12/2023 Recorded SARS-CoV-2 (COVID-19) [id number] 03/09/2022 Recorded SARS-CoV-2 (COVID-19) mRNA-1273 vaccine 08/18/2021 Recorded SARS-CoV-2 (COVID-19) mRNA-1273 vaccine 03/15/2021 Recorded SARS-CoV-2 (COVID-19) mRNA-1273 vaccine 08/17/2020 Recorded SARS-CoV-2 (COVID-19) mRNA-1273 vaccine 07/20/2020 [facility]Result Comment: Electronically Signed By: BEAU TAPIA, Robin Christian\Date and Time Signed: 01/28/24 13:40 EDTEvaluation + Plan note No data available for this section [facility] [place] Evaluation note* Diagnosis Breast cancer screening by mammogram documented in this encounter [facility] Work Phone: evalfbupyt note* Diagnosis Breast cancer screening by mammogram documented in this encounter [facility] Work Phone: evalptljfy note* Diagnosis Onset Date Resolution Status Encounter for screening colonoscopy acute [facility] Work Phone: Evaluation noteNo assessment information available [facility] Work Phone: Evaluation note* Diagnosis Screening mammogram, encounter for [facility] Diagnosis Onset Date Resolution Status Admit Date Fracture of fourth toe, righ t, closed acute April 30 10:08am [facility] Work Phone: Hospital Discharge instructionsAmbulatory Orders* Referral to General Surgery Time Frame: 11/18/23, Location: None [facility] Work Phone: Hospital Discharge instructions No data available for this section [facility] Surgery [place] Progress note No data available for this section [facility] Assessments Diagnosis Visit for screening mammogram Other screening mammogram Diagnosis Screening for vaginal cancer Special screening for malignant neoplasms, vagina Advance Directives No Advanced Directives Records FoundDocuments on File Type Date Recorded 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 ACP-Advance Directive ACP-[facility] Rehabilitation Team Lead Documents on File Type Date Recorded 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 ACP-Advance Directive [facility] Team Lead Advance Directive Response Recorded Date/ Time Advance Directives No November 17 9:55am Advance Directive Response Recorded Date/ Time Advance Directives No November 17 8:55am Reason for Referral Status Reason Specialty Diagnoses / Procedures Referre d By Contact Referred To Contact Closed Radiology Diagnoses Breast cancer screening by mammogram Procedures GARETH JEREMIAH DIGITAL SCREEN SELF REFERRAL W OR WO CAD BILATERAL Pretty Culp MD [address] [place] [address] Specialty Diagnoses / Procedures Referred By Contac t Referred To Contact Radiology Diagnoses Breast cancer screening by mammogram Procedures GARETH JEREMIAH DIGITAL SCREEN SELF REFERRAL W OR WO CAD BILATERAL Pretty Culp MD [address] [place] [address] Referral ID Status Reason Start Date Expiration Date Visits Re quested Visits Authorized [id number] Closed 12/08/2021 12/08/2022 1 1 Specialty Diagnoses / Procedures Referred By Contac t Referred To Contact Radiology Diagnoses Screening mammogram, encounter for Procedures GARETH JEREMIAH DIGITAL SCREEN BILATERAL Soumya Patten, REGIONAL PRODUCTION MANAGER - CNM [address] [facility] [address] [place] [address] Referral ID Status Reason Start Date Expiration Date Visits Re quested Visits Authorized [id number] Closed 03/27/2024 03/27/2025 1 1 Summary Purpose Family History No Family History Records Found Relationship Condition Age at Onset Recorded Date/T vance brother Hypertension Unknown father History of malignant neoplasm of prostate Unknown Malignant neoplasm Unknown Unknown Heart disease Unknown family member Heart disease Unknown mother Cardiomegaly Unknown Chief Complaint and Reason for Visit Chief Complaint wellness Reason for Visit Encounter for screen ing colonoscopy Chief Complaint Admit Date Unknown March 11, 2024 7:51am Chief Complaint Admit Date Unknown March 11, 2024 7:51am Right foot 4th toe injury April 30 025 10:08am S99.921A - Unspecified injury of right f oot, initi April 30, 2024 10:26am Reason for Visit Admit Date Fracture of fourth toe, right, closed Ja nuary 2024 10:08am Additional Source Comments Reason for Visit (unrecogniz ed section and content) Status Reason Specialty Diagnoses / Procedures Referre d By Contact Referred To Contact Closed Radiology Diagnoses Visit for screening mammogram Procedures GARETH JEREMIAH DIGITAL SCREEN BILATERAL GARETH DIGITAL SCREEN W OR WO CAD BILATERAL Soumya Patten, REGIONAL PRODUCTION MANAGER - [address] [address] [facility] [place] [address] Status Reason Specialty Diagnoses / Procedures Referre d By Contact Referred To Contact Closed Radiology Diagnoses Breast cancer screening by mammogram Procedures GARETH JEREMIAH DIGITAL SCREEN SELF REFERRAL W OR WO CAD BILATERAL Pretty Culp MD [address] [place] [address] Specialty Diagnoses / Procedures Referred By Contac t Referred To Contact Radiology Diagnoses Breast cancer screening by mammogram Procedures GARETH JEREMIAH DIGITAL SCREEN SELF REFERRAL W OR WO CAD BILATERAL Pretty Culp MD [address] [place] [address] Referral ID Status Reason Start Date Expiration Date Visits Re quested Visits Authorized [id number] Closed 12/08/2021 12/08/2022 1 1 Specialty Diagnoses / Procedures Referred By Contac t Referred To Contact Radiology Diagnoses Screening mammogram, encounter for Procedures GARETH JEREMIAH DIGITAL SCREEN BILATERAL Soumya Patten, REGIONAL PRODUCTION MANAGER - CNM [address] [facility] [address] [place] [address] Referral ID Status Reason Start Date Expiration Date Visits Re quested Visits Authorized [id number] Closed 03/27/2024 03/27/2025 1 1 Care Teams (unrecognized sec tion and content) Axle Bearing Polisher Relationship Specialty Start Date End Date Pretty Culp MD PCP - General Family Medicine 08/21/18 Team Status: Active Member Role Status Dates Pretty Culp MD Primary Care Provider Active Team Status: Inactive Member Role Status Dates Pretty Culp MD Primary Care Provide r, Attending Provider Active Start: November 18, 2023 End: November 18, 2023 Team Status: Inactive Member Role Status Dates Robin Yanez MD FACS Attending Provider Active Start: March 11, 2024 End: March 11, 2024 Axle Bearing Polisher Relationship Specialty Start Date End Date Pretty Culp MD PCP - General Family Medicine 08/21/18 Axle Bearing Polisher Relationship Specialty Start Date End Date Pretty Culp MD PCP - General Family Medicine 08/21/18 Team Status: Inactive Member Role Status Dates Pepper Kee APRN Attending Provider Active S tart: April 30, 2024 End: April 30, 2024 Pretty Culp MD Primary Care Provider Active Start: April 30, 2024 End: April 30, 2024 Team Status: Active Member Role Status Dates Pretty Culp MD Primary Care Provider Active Start: April 30, 2024 Pepper Kee APRN Attending Provider Active S tart: April 30, 2024 Team Status: Inactive Member Role Status Dates Pretty Culp MD Primary Care Provider Active Start: April 30, 2024 End: April 30, 2024 Pepper Kee APRN Attending Provider Active S tart: April 30, 2024 End: April 30, 2024 INFORMATION SOURCE (unrecogn ized section and content) DATE CREATED AUTHOR 04/21/2023 [facility] DATE CREATED AUTHOR AUTHOR'S ORGANIZ ATION 03/25/2024 [facility] DATE CREATED AUTHOR AUTHOR'S ORGANIZ ATION 05/01/2024 [facility] DATE CREATED AUTHOR AUTHOR'S ORGANIZ ATION 05/05/2024 [facility] Goals (unrecognized section and content) Goals may be documented in a n alternate section No data available for this sectionGoals may be documented in an alternate section No data available for this sectionGoals may be documented in an alternate sectionGoals may be documented in an alternate section FOR RECORDS PERTAINING TO PATIENTS WHO [...] BE BASED ON THE PRIMARY CLINICAL RECORDS. [facility] [employer] [facility]. provides no warranty or guarantee of the accuracy or completeness of information in this document.
[2024-11-09 11:20] LABS: Alanine Aminotransferase 21 U/L (14-59); Albumin Globulin Ratio 1.0; Albumin Level 3.6 g/dL (3.4-5.0); Alkaline Phosphatase 75 U/L (46-116); Anion Gap 13.4; Aspartate Amino Transferase 15 U/L (15-37); Blood Urea Nitrogen 16.0 mg/dL (7.0-18.0); Calcium 9.3 mg/dL (8.5-10.1); Carbon Dioxide 27.3 mmol/L (21.0-32.0); Chloride 105 mmol/L (98-107); Cholesterol 231 mg/dL (<=200); Estimated GFR (African America >60 (>=60 mL/min/1.73m^2); Estimated GFR (Non-African Ame >60 (>=60 mL/min/1.73m^2); Globulin 3.6 g/dL; Glucose 96 mg/dL (74-106); HDL Cholesterol 92 mg/dL (40-60); Potassium 3.7 mmol/L (3.5-5.1); Sodium 142 mmol/L (136-145); Total Protein 7.2 g/dL (6.4-8.2); Triglycerides 69 mg/dL (<=150); VLDL CHOLESTEROL 13.8 mg/dL
== END 2024-11-09 09:06 | disposition home or self-care (01) ==
LOC: LAB 09:07
PROVIDERS: Family Provider Family Medicine; PCP Family Medicine; Visit Provider Family Medicine
DX: Z00.00 Encounter for general adult medical examination without abnormal findings (principal); E55.9 Vitamin D deficiency, unspecified; N18.1 Chronic kidney disease, stage 1; E78.2 Mixed hyperlipidemia; R31.9 Hematuria, unspecified
CPT/HCPCS: 36415; 80053; 80061; 81003; 82043; 82306; 82570; 85025